=== PATIENT | male | born 1945 | race Caucasian/White ===

== ENCOUNTER 2019-04-06 09:09 | Emergency (ER) | payer OTHER ==
--- NOTE | 2019-04-06 09:25 | ER Document Report ---
HPI - HPI Patient complains to provider of: hematuria Onset: This morning Onset/Duration: Sudden, Persistent Quality of pain: No pain Severity: Moderate Pain Level: Denies Context: 73 Yr old male pt with the listed pmh, here for a large of amt of bleeding from his penis that is painless for the last several hours. he is uncircumsized. he only takes asa. no other blood thinners. no trauma or injury. no hx of asthma. hx of diabetes but states sugars are well controlled. normal bms. no uti sx. no testicular pain/swelling, penile dc/rash/lesions, or concerns for stds. denies swelling or hx of hernias. no abd surgeries unless otherwise noted. no recent abx or steroids. hasn't taken anything for sx. no hx of bleeding or clotting disorders. no acute blood loss sx. no hx of this before. no hx of gerd, gb dz, pancreatitis, gi bleed, ulcers, ibs, or crohns. pt's son is also not sure if he may be bleeding from his rectum as he has had bled enough to go through two p airs of underwear and one pair of pants. no sick contacts. no uri sx. no rash. no excessive nsaid use or etoh. no recent illness. no abd pain. pt however denies changes in color or caliber of stool. no other associated sx. - ROS Systems Reviewed and Negative: Yes All other systems reviewed and negative - to include 10, unless mentioned in the hpi <URBANO NELSON - Last Filed: 04/06/19 18:52> <WINNIE DOCKERY - Last Filed: 04/08/19 14:32> - HPI Time Seen by Provider: 04/06/19 09:22 Past Medical History - General Information source: Patient - Social History Smoking Status: Unknown if Ever Smoked Frequency of alcohol use: unknown Drug Abuse: Other - unknown Family History: Reviewed & Not Pertinent Patient has suicidal ideation: No Patient has homicidal ideation: No - Past Medical History Cardiac Medical History: Reports: Hx Hypercholesterolemia, Hx Hypertension Denies: Hx Atrial Fibrillation, Hx Congestive Heart Failure, Hx Pulmonary Embolism Endocrine Medical History: Reports: Hx Diabetes Mellitus Type 2 Renal/ Medical History: Denies: Hx Benign Prostatic Hyperplasia, Hx End Stage Renal Disease, Hx Epididymitis, Hx Hemodialysis, Hx Hydrocele, Hx Kidney Stones, Hx Peritoneal Dialysis, Hx Renal Insufficiency, Hx Testicular Torsion, Hx Varicocele Malignancy Medical History: Reports None, Denies Hx Prostate Cancer GI Medical History: Reports: Hx Gastroesophageal Reflux Disease. Denies: Hx Liver Failure Psychiatric Medical History: Reports: Hx Depression - Immunizations Hx Diphtheria, Pertussis, Tetanus Vaccination: Yes <URBANO NELSON - Last Filed: 04/06/19 18:52> Vertical Provider Document - CONSTITUTIONAL Notes: >>>> PHYSICAL_EXAM: GENERAL_APPEARANCE: well_nourished, alert, cooperative, no_acute_distress, no obvious_discomfort. Pleasant, morbidly obese elderly white male, smiling, speaking in full sentences, easily sitting up, in no sign of pain or resp distress, nontoxic VITALS: reviewed, see vital signs table. HEAD: normocephalic. atraumatic. no helms signs. no raccoon eyes. EYES: PERRL, EOMI, (-)scleral icterus. NOSE: no_nasal_discharge. MOUTH: (-)decreased moisture. THROAT: no_tonsilar_inflammation/hypertrophy/exudate. no lymphadenopathy NECK: supple, no_neck_tenderness, full rom. full strength. no meningeal signs. BACK: no_back_tenderness. CHEST_WALL: no_chest_tenderness. LUNGS: no_wheezing, (-)accessory muscle use, good air exchange bilateral. HEART: normal_rate, normal_rhythm,, ABDOMEN: normal_BS, soft, abdomen-diffuse, obese abd, exam somewhat limited due to pts body habitus, non-tender, (-)guarding, (-)rebound, no distension or peritoneal signs. neg murphys. neg mcburneys. no cva tenderness GENITALS: no_testicular_tenderness/swelling, no_urethral_discharge, no_inguinal_hernia, no_ulcers_or_lesions on the genitals unless otherwise noted, no_lacerations on the genitals, there is muna bright red blood in the underwear of the patient right below his penis and testicles. there is no pulsatile flow. On exam the penis has a chronic appearing phimosis that the patient states has b een there for his whole life along with a hardened lumpy appearing foreskin that the pt states is also chronic and unchanged. There is some bright red blood coming from in between the foreskin and the shaft of the penis. There is granulated and hyperkeratotic tissue and also some chronic excoriated-looking skin breakdown changes from what I can view around the inner edges of the small opening of phimosis. i can not directly visualize the urethral opening however pt states he can still urinate and has no pain. Foreskin is not able to be retracted however the patient states he still urinates without complication again and usually can't retract it. The lesions do not appear exactly herpetic. Some of them do appear that they could be cancerous versus condylomatous. pt is not circumcized. no sign of cellulitis or tinea. testicles otherwise wnl. exam chaperoned by ed nurse. pt consented to exam. exam without incident. RECTAL: pt consented. tolerated exam without incident. good rectal tone. hemoccult neg. no hemorrhoids. no prostate ttp or enlargement or grossly visible or palpable masses. no lesions or tears. no discharge or bleeding. ed nurse present at bedside to edge stainer machine during entire exam. EXTREMITIES: strength 5/5 in all_extremities, good pulses in all_extremities, no_edema, no_swelling\tenderness. full rom. normal gait. brisk cap refill. good hand medical records tech. SKIN: warm, dry, good_color, n _rash. no grossly visible overlying skin changes to suggest trauma unless otherwise noted. NEURO: motor_intact, sensory_intact. cranial nerves 2-12 intact, cerebellar fxn intact MENTAL_STATUS: normal_affect, speech_clear, oriented_X_3, responds_appropriately to questions. - INFECTION CONTROL TRAVEL OUTSIDE OF THE [place] IN LAST 30 DAYS: No <URBANO NELSON - Last Filed: 04/06/19 18:52> Course - Re-evaluation Re-evalutation: 04/06/19 13:10 Patient presents with some bleeding in between his foreskin on the shaft of his penis for the last several hours. He does have a chronic phimosis however is still able to urinate. He denies any dysuria or frequency. He denies any trauma or injury to the area. No history of this before. He states he has not been able to retract his foreskin his whole life. He denies any pain pain or testicular pain or swelling. No prior history of anemia or clotting disorders. No acute blood loss symptoms. His labs were notable for a hemoglobin of 11.7 and a creatinine of 1.38 however i have no old labs to compare too. He takes aspirin but no other blood thinners. His urine appears contaminated. Culture is pending. We will hold off on treatment with antibiotics since he is asymptomatic otherwise without dysuria or frequency and await culture sensitivities and urology recommendations. The patient had soaked through 2 pairs of underwear with bright red blood however then had a clot come from between the foreskin and the shaft of the penis per nursing and has had no further bleeding in the last 2 hours that he has been here and observed. He continues to deny any symptoms. He is still able to urinate. ED attending, Dr. Gama advised that I call on-call urology at [facility] since we do not have an on-call urologist here at [facility] today. I did speak with Bela, the [facility] transfer center person, who connected me to their on-call urologist, Dr. Shepherd, who i discussed the case with and he stated that the patient just needed to call their office here in [place] first thing in the morning and they would fit him in tomorrow for recheck. Patient informed of this. He was given urology's information. He was advised to return to ER today if he had any new, worsening or concerning symptoms. Vital signs stable. Otherwise well-appearing and nontoxic. Afebrile. Satting well on room air. Follow-up with urology tomorrow as discussed. Return for any worsening symptoms. On reexam, pt remained stable and the bleeding resolved spontaneously and didn't return after being observed for about 2hrs. no txa or attempts at stopping the bleeding had to be done as he stopped bleeding on his own. nontoxic. well appearing. pain controlled. tolerating po. requesting to go home. case discussed with ER Attending, Dr. Gama, who directed and agrees with plan of care and advised no further workup indicated at this time and pt is stable for dc home with close f/u with urologist tomorrow. Documentation achieved through voice recording which my lead to some occasional accidental typographical errors. Extensive efforts have been made to proof read documentation to make sure these are the least as possible. 04/06/19 19:06 - Vital Signs Vital signs: 04/06/19 13:10 Temp Pulse Resp BP Pulse Ox 17 128/74 H 94 07/21/19 10:01 04/06/19 10:01 04/06/19 10:01 Resp BP Pulse Ox 04/06/19 10:01 17 128/74 H 94 04/06/19 10:00 19 93 04/06/19 09:57 18 127/74 H 94 04/06/19 09:56 19 94 04/06/19 09:34 17 90 L 04/06/19 19:10 Temp Resp BP Pulse Ox 04/06/19 13:22 98.5 F 04/06/19 13:02 14 117/85 94 04/06/19 12:01 17 133/80 H 94 04/06/19 11:01 16 116/68 93 04/06/19 10:01 17 128/74 H 94 04/06/19 10:00 19 93 04/06/19 09:57 18 127/74 H 94 04/06/19 09:56 19 94 04/06/19 09:34 17 90 L - Laboratory Result Diagrams: 04/06/19 09:28 04/06/19 09:28 Laboratory results interpreted by me: 04/06/19 13:10 Labs- Entire Visit 04/06/19 04/06/19 04/06/19 09:28 09:28 09:28 WBC 5.4 RBC 3.65 L Hgb 11.7 L Hct 34.8 L MCV 95 MCH 31.9 MCHC 33.5 RDW 13.5 Plt Count 213 Seg Neutrophils % 53.9 Lymphocytes % 31.4 Monocytes % 7.4 Eosinophils % 6.3 H Basophils % 1.0 Absolute Neutrophils 2.9 Absolute Lymphocytes 1.7 Absolute Monocytes 0.4 Absolute Eosinophils 0.3 Absolute Basophils 0.1 PT 12.7 INR 0.95 APTT 25.2 Sodium 140.7 Potassium 5.2 H Chloride 108 H Carbon Dioxide 24 Anion Gap 9 BUN 41 H Creatinine 1.38 H Est GFR ( Amer) > 60 Est GFR (Non-Af Amer) 51 L Glucose 209 H Calcium 9.6 Total Bilirubin 0.7 Direct Bilirubin 0.5 H Neonat Total Bilirubin Not Reportable Neonat Direct Bilirubin Not Reportable Neonat Indirect Bili Not Reportable AST 27 ALT 39 Alkaline Phosphatase 46 Total Protein 7.5 Albumin 4.1 Urine Color Urine Appearance Urine pH Ur Specific [place] Urine Protein Urine Glucose (UA) Urine Ketones Urine Blood Urine Nitrite Urine Bilirubin Urine Urobilinogen Ur Leukocyte Esterase Urine WBC (Auto) Urine RBC (Auto) Urine WBC Clumps Squamous Epi Cells Auto Urine Ascorbic Acid POC Stool Occult Blood 04/06/19 04/06/19 09:50 11:15 WBC RBC Hgb Hct MCV MCH MCHC RDW Plt Count Seg Neutrophils % Lymphocytes % Monocytes % Eosinophils % Basophils % Absolute Neutrophils Absolute Lymphocytes Absolute Monocytes Absolute Eosinophils Absolute Basophils PT INR APTT Sodium Potassium Chloride Carbon Dioxide Anion Gap BUN Creatinine Est GFR ( Amer) Est GFR (Non-Af Amer) Glucose Calcium Total Bilirubin Direct Bilirubin Neonat Total Bilirubin Neonat Direct Bilirubin Neonat Indirect Bili AST ALT Alkaline Phosphatase Total Protein Albumin Urine Color JUWAN Urine Appearance CLOUDY Urine pH 5.0 Ur Specific [place] 1.019 Urine Protein 100 H Urine Glucose (UA) NEGATIVE Urine Ketones NEGATIVE Urine Blood LARGE H Urine Nitrite NEGATIVE Urine Bilirubin NEGATIVE Urine Urobilinogen 2.0 H Ur Leukocyte Esterase MODERATE H Urine WBC (Auto) >182 Urine RBC (Auto) >182 Urine WBC Clumps MOD Squamous Epi Cells Auto 2 Urine Ascorbic Acid NEGATIVE POC Stool Occult Blood NEGATIVE <URBANO NELSON - Last Filed: 04/06/19 18:52> - Re-evaluation Re-evalutation: 04/08/19 14:31 Cultures grew out 40-50,000 CFU gram-negative rods and greater than 100,000 group B beta Streptococcus. Patient is started on Keflex. Prescription has been printed and patient will pick this up at the desk. Of note patient has not been able to follow-up with Dr. Shepherd and [facility]. - Vital Signs Vital signs: Temp Pulse Resp BP Pulse Ox 98.5 F 14 117/85 94 04/06/19 13:22 04/06/19 13:02 04/06/19 13:02 04/06/19 13:02 - Laboratory Result Diagrams: 04/06/19 09:28 04/06/19 09:28 Laboratory results interpreted by me: 04/06/19 04/06/19 04/06/19 09:28 09:28 11:15 RBC 3.65 L Hgb 11.7 L Hct 34.8 L Eosinophils % 6.3 H Potassium 5.2 H Chloride 108 H BUN 41 H Creatinine 1.38 H Est GFR (Non-Af Amer) 51 L Glucose 209 H Direct Bilirubin 0.5 H Urine Protein 100 H Urine Blood LARGE H Urine Urobilinogen 2.0 H Ur Leukocyte Esterase MODERATE H <WINNIE DOCKERY - Last Filed: 04/08/19 14:32> Discharge <URBANO NELSON - Last Filed: 04/06/19 18:52> <WINNIE DOCKERY - Last Filed: 04/08/19 14:32> - Discharge Clinical Impression: Penile bleeding, Mild anemia, Lesion of penis Condition: Stable Disposition: HOME, SELF-CARE Instructions: Hematuria ([facility]) Additional Instructions: Call the urologist office in the morning to schedule an appointment for lauro rrow. Follow-up with the urologist tomorrow without fail. Return for any worsening, new, or concerning symptoms. we will call you with any abnormal culture results that require change in plan of care. Prescriptions: Cephalexin Monohydrate [Keflex 500 mg Capsule] 500 mg PO BID 5 Days capsule Referrals: LINDA CURRIE MD [ACTIVE STAFF] - Follow up as needed BERNICE SHEPHERD MD [NO LOCAL MD] - 04/07/19 (Call first thing in the morning for an apt tomorrow per Dr. Shepherd-Urologist)
[2019-04-06 10:46] LABS: INTERNATIONAL RATION (INR) 0.95; PROTHROMBIN TIME 12.7 SEC (11.4-15.4)
[2019-04-06 10:47] LABS: ABSOLUTE BASOPHILS # (AUTO) 0.1 10^3/uL (0.0-0.2); ABSOLUTE EOSINOPHILS # (AUTO) 0.3 10^3/uL (0.0-0.6); ABSOLUTE LYMPHOCYTES (AUTO) 1.7 10^3/uL (0.5-4.7); ABSOLUTE MONOCYTES (AUTO) 0.4 10^3/uL (0.1-1.4); ABSOLUTE NEUT (AUTO) 2.9 10^3/uL (1.7-8.2); EOSINOPHILS % (AUTO) 6.3 % (0-6); HEMATOCRIT 34.8 % (37.9-51.0); HEMOGLOBIN 11.7 g/dL (13.5-17.0); LYMPHOCYTES % (AUTO) 31.4 % (13-45); MEAN CORPUSCULAR HEMOGLOBIN 31.9 pg (27.0-33.4); MEAN CORPUSCULAR HGB CONC 33.5 g/dL (32.0-36.0); MEAN CORPUSCULAR VOLUME 95 fl (80-97); MONOCYTES % (AUTO) 7.4 % (3-13); PARTIAL THROMBOPLASTIN TIME 25.2 SEC (23.5-35.8); PLATELET COUNT 213 10^3/uL (150-450); RED BLOOD COUNT 3.65 10^6/uL (4.35-5.55); RED CELL DISTRIBUTION WIDTH 13.5 % (11.5-14.0); SEGMENTED NEUTROPHILS % (AUTO) 53.9 % (42-78); TOTAL CELLS COUNTED % (AUTO) 100 %; WHITE BLOOD COUNT 5.4 10^3/uL (4.0-10.5)
[2019-04-06 10:49] LABS: ALANINE AMINOTRANSFERASE 39 U/L (21-72); ALBUMIN 4.1 g/dL (3.5-5.0); ALKALINE PHOSPHATASE 46 U/L (38-126); ANION GAP 9 (5-19); ASPARTATE AMINO TRANSFERASE 27 U/L (17-59); BILIRUBIN,DIRECT 0.5 mg/dL (0.0-0.4); BILIRUBIN,TOTAL 0.7 mg/dL (0.2-1.3); BLOOD UREA NITROGEN 41 mg/dL (7-20); CALCIUM 9.6 mg/dL (8.4-10.2); CARBON DIOXIDE 24 mmol/L (22-30); CHLORIDE 108 mmol/L (98-107); GLUCOSE 209 mg/dL (75-110); POTASSIUM 5.2 mmol/L (3.6-5.0); TOTAL PROTEIN 7.5 g/dL (6.3-8.2)
[2019-04-06 11:33] LABS: APPEARANCE,URINE CLOUDY; BILIRUBIN,URINE NEGATIVE (NEGATIVE); COLOR,URINE AMBER; GLUCOSE, URINE NEGATIVE (NEGATIVE); KETONES,URINE NEGATIVE (NEGATIVE); LEUKOCYTE ESTERASE,URINE MODERATE (NEGATIVE); NITRITE,URINE NEGATIVE (NEGATIVE); PROTEIN,URINE 100 mg/dL (NEGATIVE); URINE SPECIFIC GRAVITY 1.019
[2019-04-06] MEDS ORDERED: TRANEXAMIC ACID INJ/PF 1,000 MG/10 ML SDV IV ONE (12:02)
[2019-04-06 13:21] VITALS: BP 117/85
== END 2019-04-06 13:49 | disposition home or self-care (01) ==
LOC: ER 09:09
DX: N48.89 Other specified disorders of penis (principal); D64.9 Anemia, unspecified; N47.1 Phimosis; E11.9 Type 2 diabetes mellitus without complications; I10 Essential (primary) hypertension; E66.01 Morbid (severe) obesity due to excess calories; Z79.82 Long term (current) use of aspirin
CPT/HCPCS: 36415; 80053; 81001; 85025; 85610; 85730; 87086; 87088; 87186; 99283

== ENCOUNTER 2019-04-06 18:36 | Emergency (ER) | payer MEDICARE, OTHER ==
--- NOTE | 2019-04-06 19:21 | ER Document Report ---
ED Medical Screen (RME) - General Chief Complaint: Urinary Problem Stated Complaint: BLOOD IN URINE Time Seen by Provider: 04/06/19 18:59 Primary Care Provider: ROCIO MOY [Primary Care Provider] - Follow up as needed Notes: 73-year-old male seen here earlier this morning for hematuria presents to the emergency department with continued persistent bleeding and tachycardia. Patient states that when he left bleeding had stopped and everything was okay and was instructed if he continued to bleed to come back to the emergency department. Patient said he lost a significant amount of blood earlier in the day and the bleeding is not as severe as it was earlier but it is still present. On inspection patient's foreskin is very hard and I am unable to pull it back, there is blood clots in the area it is difficult to ascertain if there is blood coming from the urethra or if it is around his glans penis. It does not appear that he is actively bleeding but his shorts are soaked through with blood any Chux pad has been soaked through as well. Patient denies any dizziness/lightheadedness/weakness, is able to ambulate once he gets on his feet without difficulty. Urology was consulted earlier in the day and they plan to see him first thing in the morning. I have greeted and performed a rapid initial assessment of this patient. A comprehensive ED assessment and evaluation of the patient, analysis of test r esults and completion of medical decision making process will be conducted by an additional ED providers. TRAVEL OUTSIDE OF THE [place] IN LAST 30 DAYS: No - Related Data Allergies/Adverse Reactions: No Known Allergies Allergy (Verified 04/06/19 18:37) Past Medical History - Past Medical History Cardiac Medical History: Reports: Hx Hypercholesterolemia, Hx Hypertension Denies: Hx Atrial Fibrillation, Hx Congestive Heart Failure, Hx Pulmonary Embolism Endocrine Medical History: Reports: Hx Diabetes Mellitus Type 2 Renal/ Medical History: Denies: Hx Benign Prostatic Hyperplasia, Hx End Stage Renal Disease, Hx Epididymitis, Hx Hemodialysis, Hx Hydrocele, Hx Kidney Stones, Hx Peritoneal Dialysis, Hx Renal Insufficiency, Hx Testicular Torsion, Hx Varicocele Malignancy Medical History: Denies Hx Prostate Cancer GI Medical History: Denies: Hx Liver Failure Psychiatric Medical History: Reports: Hx Depression - Immunizations Hx Diphtheria, Pertussis, Tetanus Vaccination: Yes Physical Exam - Vital signs Vitals: Temp Pulse Resp BP Pulse Ox 99.4 F 124 H 18 118/67 94 04/06/19 18:45 04/06/19 18:45 04/06/19 18:45 04/06/19 18:45 04/06/19 18:45 - Notes Notes: PHYSICAL EXAMINATION: Reviewed vital signs and charting by RN GENERAL: Alert, interacts well. No acute distress. HEAD: Normocephalic, atraumatic. EYES: Pupils equal and round. Extraocular movements intact. ENT: Oral mucosa moist, tongue midline. NECK: Full range of motion. Trachea midline. : Blood clotting from the tip of the urethra and around the foreskin, I am unable to retract the foreskin as there is significant stenosis of the skin and on palpation is very hard and I am unable to manipulate the skin EXTREMITIES: Moves all 4 extremities spontaneously. No edema, No cyanosis. PSYCH: Normal affect, normal mood. SKIN: Warm, dry, normal turgor. No rashes or lesions noted. Course - Vital Signs Vital signs: Temp Pulse Resp BP Pulse Ox 99.4 F 124 H 18 118/67 94 04/06/19 18:45 04/06/19 18:45 04/06/19 18:45 04/06/19 18:45 04/06/19 18:45 Doctor's Discharge - Discharge [facility]errals: [facility] [[facility] - Follow up as needed
[2019-04-06 19:58] LABS: ABSOLUTE EOSINOPHILS # (AUTO) 0.3 10^3/uL (0.0-0.6); ABSOLUTE MONOCYTES (AUTO) 0.4 10^3/uL (0.1-1.4); ABSOLUTE NEUT (AUTO) 3.3 10^3/uL (1.7-8.2); BASOPHILS % (AUTO) 0.7 % (0-2); EOSINOPHILS % (AUTO) 5.6 % (0-6); HEMATOCRIT 35.5 % (37.9-51.0); HEMOGLOBIN 11.8 g/dL (13.5-17.0); LYMPHOCYTES % (AUTO) 32.3 % (13-45); MEAN CORPUSCULAR HEMOGLOBIN 31.9 pg (27.0-33.4); MEAN CORPUSCULAR HGB CONC 33.2 g/dL (32.0-36.0); MEAN CORPUSCULAR VOLUME 96 fl (80-97); MONOCYTES % (AUTO) 7.3 % (3-13); PLATELET COUNT 228 10^3/uL (150-450); RED CELL DISTRIBUTION WIDTH 14.1 % (11.5-14.0); SEGMENTED NEUTROPHILS % (AUTO) 54.1 % (42-78); TOTAL CELLS COUNTED % (AUTO) 100 %; WHITE BLOOD COUNT 6.1 10^3/uL (4.0-10.5)
[2019-04-06 20:03] LABS: INTERNATIONAL RATION (INR) 0.93; PROTHROMBIN TIME 12.5 SEC (11.4-15.4)
[2019-04-06 20:15] LABS: ANION GAP 10 (5-19); BLOOD UREA NITROGEN 40 mg/dL (7-20); CALCIUM 9.9 mg/dL (8.4-10.2); CARBON DIOXIDE 23 mmol/L (22-30); CHLORIDE 109 mmol/L (98-107); GLUCOSE 183 mg/dL (75-110); POTASSIUM 5.3 mmol/L (3.6-5.0); SODIUM 141.7 mmol/L (137-145)
--- NOTE | 2019-04-06 20:20 | ER Document Report ---
ED GI/ - General Chief Complaint: Urinary Problem Stated Complaint: BLOOD IN URINE Time Seen by Provider: 04/06/19 18:59 Primary Care Provider: [facility] [Primary [facility]] - Follow up as needed Notes: Patient is a 73-year-old male that comes to the emergency department for chief complaint of bleeding from around the penis. He was seen here earlier for this, he was discharged with plans to follow-up with Dr. Lopes with [facility] urology tomorrow in the [place] office, he states that he was not bleeding at time of discharge but when he went home after he used the bathroom he started bleeding again. He bled through his underwear and into his pants. He states that before this morning he never had a problem with bleeding from the penis. He denies pain, dizziness, or any other symptoms. He takes a daily baby aspirin, does not take blood thinners otherwise. He states that he used to be able to retract the penis but not recently. He does have a history of type 2 diabetes on oral medication, hypertension, depression. [facility]. Patient's brother is at bedside. TRAVEL OUTSIDE OF THE [place] IN LAST 30 DAYS: No - Related Data Allergies/Adverse Reactions: No Known Allergies Allergy (Verified 04/06/19 22:38) Past Medical History - General Information source: Patient - Social History Smoking Status: Never Smoker Chew tobacco use (# tins/day): No Frequency of alcohol use: None Drug Abuse: None Lives with: Alone Family History: Reviewed & Not Pertinent Patient has suicidal ideation: No Patient has homicidal ideation: No - Past Medical History Cardiac Medical History: Reports: Hx Hypercholesterolemia, Hx Hypertension Denies: Hx Atrial Fibrillation, Hx Congestive Heart Failure, Hx Pulmonary Embolism Endocrine Medical History: Reports: Hx Diabetes Mellitus Type 2 Renal/ Medical History: Denies: Hx Benign Prostatic Hyperplasia, Hx End Stage Renal Disease, Hx Epididymitis, Hx Hemodialysis, Hx Hydrocele, Hx Kidney Stones, Hx Peritoneal Dialysis, Hx Renal Insufficiency, Hx Testicular Torsion, Hx Varicocele Malignancy Medical History: Denies Hx Prostate Cancer GI Medical History: Denies: Hx Liver Failure Psychiatric Medical History: Reports: Hx Depression - Immunizations Hx Diphtheria, Pertussis, Tetanus Vaccination: Yes Review of Systems - Review of Systems Constitutional: No symptoms reported EENT: No symptoms reported Cardiovascular: No symptoms reported Respiratory: No symptoms reported Gastrointestinal: No symptoms reported Genitourinary: See HPI Male Genitourinary: See HPI Musculoskeletal: No symptoms reported Skin: No symptoms reported Hematologic/Lymphatic: No symptoms reported Neurological/Psychological: No symptoms reported Physical Exam - Vital signs Vitals: Temp Pulse Resp BP Pulse Ox 99.4 F 124 H 18 118/67 94 04/06/19 18:45 04/06/19 18:45 04/06/19 18:45 04/06/19 18:45 04/06/19 18:45 - Notes Notes: GENERAL: Slightly disheveled but alert and well-appearing. No distress. HEAD: Normocephalic, atraumatic. EYES: Pupils equal, round, and reactive to light. Extraocular movements intact. ENT: Oral mucosa moist, tongue midline. Oropharynx unremarkable. Airway patent. LUNGS: Clear to auscultation bilaterally, no wheezes, rales, or rhonchi. No respiratory distress. HEART: Regular rate and rhythm. No murmur ABDOMEN: Soft, non-tender. Non-distended. Bowel sounds present in all 4 quadrants. GENITOURINARY: Phimosis present, unable to retract the foreskin back over the glans. With partial retraction I can see over the left mid aspect of the tip of the glands there is abnormal tissue which is somewhat hard. There is no indura tion or fluctuance however, the area appears to be either scar tissue or a mass. Does not appear to be condylomatous. There is bleeding over the inferior aspect of the penis between the glans and the inferior foreskin/phimosis. This is mild, there is no spurting blood, there is no heavy bleeding. There is no abnormal erythema, swelling, or tenderness noted over the genitals or scrotum. Unremarkable exam otherwise. EXTREMITIES: Moves all 4 extremities spontaneously. No edema, normal radial and dorsalis pedis pulses bilaterally. No cyanosis. BACK: no cervical, thoracic, lumbar midline tenderness. No saddle anesthesia, normal distal neurovascular exam. Moves all extremities in full range of motion. NEUROLOGICAL: Alert and oriented x3. Normal speech. Cranial nerves II through XII grossly intact. PSYCH: Normal affect, normal mood. SKIN: Warm, dry, normal turgor. No rashes or lesions noted. Course - Re-evaluation Re-evalutation: On my initial evaluation patient has a small amount of bleeding from the area between the inferior folds of the foreskin and the head of the penis. There is no significant bleeding or spreading. There is no tenderness, there is no sign of infection. Patient is still able to urinate. I did place a gauze and Xeroform dressing with TXA over the area and a dressing was placed over this. On reevaluation there has been no additional bleeding after approximately 30 minutes. I did review laboratory work-up, there is no significant change from prior, no drop in hemoglobin. Patient was not tachycardic on my evaluation, this was rechecked and confirmed he is not tachycardic. Unsure if the initial vital signs were correct. Patient denies palpitations, dizziness, or any other compl aints. Patient has already been given instructions to follow-up with Dr. Lopes in the office in the morning, he asks for these details to be written again on his paperwork, he states he will be there in the morning. Discussed return precautions. Patient states understanding and agreement. - Vital Signs Vital signs: Temp Pulse Resp BP Pulse Ox 98.9 F 85 21 H 118/71 95 04/06/19 22:54 04/06/19 22:54 04/06/19 22:54 04/06/19 22:54 04/06/19 22:54 - Laboratory Result Diagrams: 04/06/19 19:45 04/06/19 19:45 Laboratory results interpreted by me: 04/06/19 04/06/19 19:45 19:45 RBC 3.70 L Hgb 11.8 L Hct 35.5 L RDW 14.1 H Potassium 5.3 H Chloride 109 H BUN 40 H Creatinine 1.65 H Est GFR ( Amer) 50 L Est GFR (Non-Af Amer) 41 L Glucose 183 H Discharge - Discharge Clinical Impression: Penile bleeding, Lesion of penis Condition: Stable Disposition: HOME, SELF-CARE Additional Instructions: We have spoken to Dr. Lopes, urologist, he asks that you be seen in their clinic in the morning for additional management and treatment. You can keep the current Xeroform (yellow) dressing with gauze and tape on if needed tonight. Keep the area clean. Call the listed number below in the morning to be seen in the office. Return if you worsen including heavy bleeding, dizziness, developing redness swelling/pain, or any other concerning or worsening symptoms. [facility] [address] [facility] [id number] Referrals: [facility] [Primary Care [facility]] - Follow up as needed
[2019-04-06] MEDS ORDERED: TRANEXAMIC ACID INJ/PF 1,000 MG/10 ML SDV IV ONE ×2 (21:09→21:35)
[2019-04-06 22:54] VITALS: BP 118/71
== END 2019-04-06 22:54 | disposition home or self-care (01) ==
LOC: ER 18:36
DX: N48.89 Other specified disorders of penis (principal); N47.1 Phimosis; I10 Essential (primary) hypertension; E11.9 Type 2 diabetes mellitus without complications; Z79.84 Long term (current) use of oral hypoglycemic drugs; Z79.82 Long term (current) use of aspirin
CPT/HCPCS: 99283; 96374; 36415; 85610; J3490

== ENCOUNTER 2019-05-25 17:54 | Emergency (ER) | payer MEDICARE, OTHER ==
[2019-05-25] MEDS ORDERED: NORMAL SALINE 1000 ML 1,000 ML IV ONE (18:07)
--- NOTE | 2019-05-25 18:24 | ER Document Report ---
Entered by MADHU AMOS SCRIBE 05/25/19 1807 Acting as scribe for:PARIS RANDOLPH MD ED General - General Stated Complaint: FALL Time Seen by Provider: 05/25/19 17:59 Primary Care Provider: FARZANEH,ROCIO [Primary Care Provider] - Follow up as needed Mode of Arrival: Ambulatory Information source: Patient Notes: Patient is a 74-year-old male who presents to the emergency department today with complaints of generalized weakness with an associated fall that earlier today. Patient was seen here on 03/07/2019 for bleeding around his foreskin. Patient was instructed to follow up with urology after discharge. Patient states he followed up with a urology group from [place] and was diagnosed with testicular cancer approximately 6 weeks ago. Patient states he is due to have "some sort of operation" in 4 days for this testicular cancer. Patient is diaphoretic and febrile as well. Patient denies any urinary symptoms today. He is scheduled for surgery on of this week. TRAVEL OUTSIDE OF THE [place] IN LAST 30 DAYS: No - Related Data Allergies/Adverse Reactions: No Known Allergies Allergy (Verified 04/06/19 22:38) Past Medical History - General Information source: Patient, [facility] Records - Social History Smoking Status: Never Smoker Cigarette use (# per day): No Frequency of alcohol use: None Drug Abuse: None Lives with: Family Family History: Reviewed & Not Pertinent - Past Medical History Cardiac Medical History: Reports: Hx Hypercholesterolemia, Hx Hypertension Endocrine Medical History: Reports: Hx Diabetes Mellitus Type 2 Malignancy Medical History: 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 Psychiatric Medical History: Reports: Hx Depression Surgical Hx: Negative - Immunizations Hx Diphtheria, Pertussis, Tetanus Vaccination: Yes Review of Systems - Review of Systems Constitutional: See HPI, Diaphoresis, Fever, Malaise, Weakness EENT: No symptoms reported Cardiovascular: No symptoms reported Respiratory: No symptoms reported Gastrointestinal: No symptoms reported Genitourinary: denies: Dysuria, Retention Male Genitourinary: No symptoms reported Musculoskeletal: No symptoms reported Skin: No symptoms reported Hematologic/Lymphatic: No symptoms reported Neurological/Psychological: No symptoms reported -: Yes All other systems reviewed and negative Physical Exam - Vital signs Vitals: Temp Pulse Resp BP Pulse Ox 102.6 F H 127 H 16 131/69 H 92 05/25/19 18:42 05/25/19 18:42 05/25/19 18:42 05/25/19 18:42 05/25/19 18:42 - Notes Notes: Physical Exam: General: Alert, obese, diaphoretic, febrile. HEENT: Normocephalic. Atraumatic. PERRL. Extraocular movements intact. Oropharynx clear. Neck: Supple. Non-tender. Respiratory: No respiratory distress. Clear and equal breath sounds bilaterally. Cardiovascular: Tachycardic, regular rhythm. Abdominal: Obese. Non-tender. No distension. Normal Bowel Sounds. GENITALS: Patient has phimosis. There is a fungating mass in the head of the penis, the distal penile tissue is quite hard. There is malodorous purulent drainage from this fungating mass at the head of the glans penis. The left testicle is atrophic, otherwise normal. Right testicle is somewhat enlarged, there is suspicion of some hardness to the posterior aspect of the testicle which would be consistent with the history of cancer in the testicle. I suspect the primary problem is the cancer in the penis. Back: No gross abnormalities. Extremities: Moves all four extremities. Upper extremities: Normal inspection. Normal ROM. Lower extremities: Trace edema bilaterally. Normal ROM. Neurological: Resting tremor at baseline. Normal cognition. AAOx4. Normal s peech. Psychological: Normal affect. Normal Mood. Skin: Hot to the touch. Diaphoretic. Normal color. Course - Re-evaluation Re-evalutation: 05/25/19 20:40 Patient's case was discussed with Dr. Steiner who is the urologist that will be doing his surgery. He states the plan is to do a frozen biopsy and then proceed with partial penectomy on Sunday. He states the fever is most likely due to inflammatory response to necrotic penile tissue, and requests that he be placed on Keflex and follow-up as planned later this week. - Vital Signs Vital signs: Temp Pulse Resp BP Pulse Ox 102.3 F H 127 H 16 131/69 H 92 05/25/19 19:27 05/25/19 18:42 05/25/19 18:42 05/25/19 18:42 05/25/19 18:42 - Laboratory Result Diagrams: 05/25/19 18:12 05/25/19 18:12 Laboratory results interpreted by me: 05/25/19 05/25/19 05/25/19 18:12 18:12 18:30 WBC 11.2 H RBC 3.77 L Hgb 11.8 L Hct 35.3 L RDW 14.1 H Lymph % (Auto) 8.6 L Absolute Neuts (auto) 9.4 H Seg Neutrophils % 84.1 H BUN 25 H Creatinine 1.40 H Est GFR (MDRD) Non-Af 50 L Glucose 206 H Urine Blood SMALL H Urine Urobilinogen 4.0 H Ur Leukocyte Esterase LARGE H Discharge - Discharge Clinical Impression: Penile malignant neoplasm Fever Qualifiers: Fever type: unspecified Qualified Code(s): R50.9 - Fever, unspecified Leukocytosis Qualifiers: Leukocytosis type: unspecified Qualified Code(s): D72.829 - Elevated white blood cell count, unspecified Condition: Stable Disposition: HOME, SELF-CARE Additional Instructions: I did discuss your case with Dr. Steiner. He thinks your fever is most likely due to the inflammatory response to the necrotic cancer tissue in your penis. He wants you to take Keflex as prescribed, and drink plenty of fluids. You should take Tylenol 1000 mg every 4-6 hours for fever as needed. Keep your appointment later this week with Dr. Steiner in [place]. Call Dr. Steiner office if having any problems or questions. RETURN TO THE EMERGENCY ROOM IF ANY NEW OR WORSENING SYMPTOMS. Prescriptions: Cephalexin Monohydrate [Keflex 500 mg Capsule] 500 mg PO QID #20 capsule [facility]errals: [facility] [Primary [facility] Provider] - Follow up as needed Scribe Attestation: 05/25/19 18:28 I personally performed the services described in the documentation, reviewed and edited the documentation which was dictated to the scribe in my presence, and it accurately records my words and actions. I personally performed the services described in the documentation, reviewed and edited the documentation which was dictated to the scribe in my presence, and it accurately records my words and actions.
[2019-05-25 18:32] LABS: ABSOLUTE BASOPHILS # (AUTO) 0.1 10^3/uL (0.0-0.2); ABSOLUTE EOSINOPHILS # (AUTO) 0.1 10^3/uL (0.0-0.6); ABSOLUTE MONOCYTES (AUTO) 0.6 10^3/uL (0.1-1.4); ABSOLUTE NEUT (AUTO) 9.4 10^3/uL (1.7-8.2); BASOPHILS % (AUTO) 0.5 % (0-2); EOSINOPHILS % (AUTO) 1.3 % (0-6); HEMATOCRIT 35.3 % (37.9-51.0); HEMOGLOBIN 11.8 g/dL (13.5-17.0); LYMPHOCYTES % (AUTO) 8.6 % (13-45); MEAN CORPUSCULAR HEMOGLOBIN 31.3 pg (27.0-33.4); MEAN CORPUSCULAR HGB CONC 33.4 g/dL (32.0-36.0); MEAN CORPUSCULAR VOLUME 94 fl (80-97); MONOCYTES % (AUTO) 5.5 % (3-13); PLATELET COUNT 260 10^3/uL (150-450); RED BLOOD COUNT 3.77 10^6/uL (4.35-5.55); RED CELL DISTRIBUTION WIDTH 14.1 % (11.5-14.0); SEGMENTED NEUTROPHILS % (AUTO) 84.1 % (42-78); TOTAL CELLS COUNTED % (AUTO) 100 %; WHITE BLOOD COUNT 11.2 10^3/uL (4.0-10.5)
[2019-05-25 18:52] LABS: ALBUMIN 4.1 g/dL (3.5-5.0); ALKALINE PHOSPHATASE 60 U/L (38-126); ANION GAP 10 (5-19); ASPARTATE AMINO TRANSFERASE 27 U/L (17-59); BILIRUBIN,DIRECT 0.2 mg/dL (0.0-0.4); BILIRUBIN,TOTAL 0.4 mg/dL (0.2-1.3); BLOOD UREA NITROGEN 25 mg/dL (7-20); CARBON DIOXIDE 26 mmol/L (22-30); CHLORIDE 104 mmol/L (98-107); CREATINE KINASE 58 U/L (55-170); GLUCOSE 206 mg/dL (75-110); POTASSIUM 4.8 mmol/L (3.6-5.0); TOTAL PROTEIN 7.4 g/dL (6.3-8.2)
[2019-05-25 18:53] LABS: APPEARANCE,URINE CLOUDY; BILIRUBIN,URINE NEGATIVE (NEGATIVE); COLOR,URINE YELLOW; GLUCOSE, URINE NEGATIVE (NEGATIVE); KETONES,URINE NEGATIVE (NEGATIVE); LEUKOCYTE ESTERASE,URINE LARGE (NEGATIVE); NITRITE,URINE NEGATIVE (NEGATIVE); PROTEIN,URINE NEGATIVE (NEGATIVE)
--- NOTE | 2019-05-25 19:03 | RADIOLOGY REPORT (SQ) ---
EXAM DESCRIPTION: CHEST SINGLE VIEW COMPLETED DATE/TIME: 05/25/2019 6:49 pm REASON FOR STUDY: fever, weak COMPARISON: None. EXAM PARAMETERS: NUMBER OF VIEWS: One view. TECHNIQUE: Single frontal radiographic view of the chest acquired. RADIATION DOSE: NA LIMITATIONS: None. FINDINGS: LUNGS AND PLEURA: No opacities, masses or pneumothorax. No pleural effusion. MEDIASTINUM AND HILAR STRUCTURES: No masses. Contour normal. HEART AND VASCULAR STRUCTURES: Cardiomegaly. BONES: No acute findings. HARDWARE: None in the chest. OTHER: No other significant finding. IMPRESSION: Cardiomegaly without acute abnormality of the lungs in AP portable projection. TECHNICAL DOCUMENTATION: JOB ID: [id number] [employer]- All Rights Reserved Reading location - IP/workstation name: [email or web address]
[2019-05-25] MEDS ORDERED: ACETAMINOPHEN 325 MG TABLET PO ONE (19:29)
[2019-05-25] MEDS ORDERED: LEVOFLOXACIN 750 MG/D5W RTU 750 MG/150 ML RTUPB IV ONE (19:30)
[2019-05-25 19:52] LABS: VENOUS BLOOD BASE EXCESS -1.1 mmol/L; VENOUS BLOOD HCO3 25.1 mmol/L (20-32); VENOUS BLOOD PCO2 48.2 mmHg (35-63); VENOUS BLOOD PH 7.34 (7.30-7.42)
[2019-05-25] MEDS ORDERED: CEPHALEXIN 500 MG CAPSULE PO ONE (20:43)
[2019-05-25 21:15] VITALS: BP 127/86
== END 2019-05-25 21:47 | disposition home or self-care (01) ==
LOC: ER 17:54
DX: C60.9 Malignant neoplasm of penis, unspecified (principal); R50.9 Fever, unspecified; D72.829 Elevated white blood cell count, unspecified; R53.1 Weakness; I10 Essential (primary) hypertension; E11.9 Type 2 diabetes mellitus without complications
CPT/HCPCS: 99284; 96361; 96365; 96366; 36415; 87040; 87086; 82550; 85025; 87077; 87088; 80053; 81001; 84484; 87186; 82803; 83605; 71045; J7030; J1956

== ENCOUNTER 2019-05-31 14:19 | Emergency (ER) | payer OTHER ==
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
[2019-05-31] MEDS ORDERED: CEFTRIAXONE 1 GM/D5W RTU 1 GM/50 ML RTUPB IV ONE (15:23)
[2019-05-31] MEDS ORDERED: ACETAMINOPHEN 325 MG TABLET PO ONE (15:27)
[2019-05-31 15:45] LABS: ABSOLUTE BASOPHILS # (AUTO) 0.1 10^3/uL (0.0-0.2); ABSOLUTE LYMPHOCYTES (AUTO) 1.3 10^3/uL (0.5-4.7); ABSOLUTE MONOCYTES (AUTO) 0.5 10^3/uL (0.1-1.4); ABSOLUTE NEUT (AUTO) 9.3 10^3/uL (1.7-8.2); BASOPHILS % (AUTO) 0.6 % (0-2); EOSINOPHILS % (AUTO) 0.1 % (0-6); HEMATOCRIT 39.3 % (37.9-51.0); HEMOGLOBIN 12.9 g/dL (13.5-17.0); LYMPHOCYTES % (AUTO) 11.4 % (13-45); MEAN CORPUSCULAR HEMOGLOBIN 31.1 pg (27.0-33.4); MEAN CORPUSCULAR HGB CONC 32.8 g/dL (32.0-36.0); MEAN CORPUSCULAR VOLUME 95 fl (80-97); MONOCYTES % (AUTO) 4.3 % (3-13); PLATELET COUNT 309 10^3/uL (150-450); RED BLOOD COUNT 4.15 10^6/uL (4.35-5.55); RED CELL DISTRIBUTION WIDTH 13.7 % (11.5-14.0); SEGMENTED NEUTROPHILS % (AUTO) 83.6 % (42-78); TOTAL CELLS COUNTED % (AUTO) 100 %; WHITE BLOOD COUNT 11.1 10^3/uL (4.0-10.5)
[2019-05-31] MEDS ORDERED: NORMAL SALINE 1000 ML 1,000 ML IV ONE ×3 (15:48→18:59)
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
[2019-05-31 15:51] LABS: ALBUMIN 4.1 g/dL (3.5-5.0); ALKALINE PHOSPHATASE 63 U/L (38-126); ANION GAP 10 (5-19); ASPARTATE AMINO TRANSFERASE 213 U/L (17-59); BILIRUBIN,DIRECT 0.3 mg/dL (0.0-0.4); BILIRUBIN,TOTAL 1.1 mg/dL (0.2-1.3); BLOOD UREA NITROGEN 27 mg/dL (7-20); CALCIUM 9.6 mg/dL (8.4-10.2); CARBON DIOXIDE 28 mmol/L (22-30); CHLORIDE 102 mmol/L (98-107); GLUCOSE 199 mg/dL (75-110); POTASSIUM 4.9 mmol/L (3.6-5.0); TOTAL PROTEIN 7.6 g/dL (6.3-8.2)
[2019-05-31 16:09] LABS: CREATINE KINASE 10233 U/L (55-170)
--- NOTE | 2019-05-31 16:09 | RADIOLOGY REPORT (SQ) ---
EXAM DESCRIPTION: CT HEAD WITHOUT COMPLETED DATE/TIME: 05/31/2019 3:53 pm REASON FOR STUDY: 11; fall; left sided facial swelling COMPARISON: None. TECHNIQUE: Axial images acquired through the brain without intravenous contrast. Images reviewed wit h bone, brain and subdural windows. Images stored on PACS. All CT scanners at this facility use dose modulation, iterative reconstruction, and/or weight based d osing when appropriate to reduce radiation dose to as low as reasonably achievable (ALARA). [facility]: Dose Right [facility]: CareDose [facility]: Dose Right [facility]: Teradose 4D [facility]: Smart [employer] RADIATION DOSE: CT Rad equipment meets quality standard of care and radiation dose reduction techniq ues were employed. CTDIvol: 53.2 mGy. DLP: 1070 mGy-cm.. LIMITATIONS: None. FINDINGS: VENTRICLES: Normal size and contour. CEREBRUM: No masses. No hemorrhage. No midline shift. Age appropriate white matter. No evidence for a cute infarction. CEREBELLUM: No masses. No hemorrhage. No alteration of density. No evidence for acute infarction. EXTRA-AXIAL SPACES: No fluid collections. ORBITS AND GLOBE: No intra- or extraconal masses. Normal contour of globe without masses. CALVARIUM: No fracture. PARANASAL SINUSES: No fluid or mucosal thickening. SOFT TISSUES: Left periorbital soft tissue swelling. OTHER: No other significant finding. IMPRESSION: NO ACUTE INTRACRANIAL FINDINGS. EVIDENCE OF ACUTE STROKE: NO. TECHNICAL DOCUMENTATION: JOB ID: [id number] [place]-72 Quality ID # [id number]: Final reports with documentation of one or more dose reduction techniques (e.g., Au tomated exposure control, adjustment of the mA and/or kV according to patient size, use of iterative reconstruction technique) 2010 [employer]- All Rights Reserved Reading location - IP/workstation name: [email or web address]
--- NOTE | 2019-05-31 16:31 | RADIOLOGY REPORT (SQ) ---
EXAM DESCRIPTION: KNEE LEFT 2 VIEWS COMPLETED DATE/TIME: 05/31/2019 4:12 pm REASON FOR STUDY: 11; fall COMPARISON: None. EXAM PARAMETERS: NUMBER OF VIEWS: Two view. TECHNIQUE: AP and lateral radiographic images acquired of the left knee. LIMITATIONS: None. FINDINGS: MINERALIZATION: Normal. BONES: No acute fracture or dislocation. No worrisome bone lesions. JOINTS: No effusion. SOFT TISSUES: No significant soft tissue swelling. No radiopaque foreign body. OTHER: No other significant finding. IMPRESSION: NO FRACTURE. TECHNICAL DOCUMENTATION: JOB ID: [id number] [place]-72 2010 [employer]- All Rights Reserved Reading location - IP/workstation name: [email or web address]
--- NOTE | 2019-05-31 16:32 | RADIOLOGY REPORT (SQ) ---
EXAM DESCRIPTION: CHEST SINGLE VIEW COMPLETED DATE/TIME: 05/31/2019 4:12 pm REASON FOR STUDY: 11; fever COMPARISON: 90 19 TECHNIQUE: Single frontal radiographic view of the chest acquired. NUMBER OF VIEWS: One view. LIMITATIONS: None. FINDINGS: LUNGS AND PLEURA: No pneumothorax. Increased left basilar airspace markings and small ple ural effusion. MEDIASTINUM AND HILAR STRUCTURES: Stable. HEART AND VASCULAR STRUCTURES: Stable. BONES: No acute findings. HARDWARE: None in the chest. OTHER: No other significant finding. IMPRESSION: Increased left basilar airspace markings and small pleural effusion. TECHNICAL DOCUMENTATION: JOB ID: [id number] [place]-72 2010 [employer]- All Rights Reserved Reading location - IP/workstation name: [email or web address]
[2019-05-31] MEDS ORDERED: AZITHROMYCIN INJ 500 MG VIAL IV ONE (16:44)
[2019-05-31 17:24] LABS: INTERNATIONAL RATION (INR) 1.13; PROTHROMBIN TIME 14.6 SEC (11.4-15.4)
[2019-05-31] MEDS ORDERED: PIPERACILLIN/TAZOBACTAM 3.375 GM VIAL IV ONE (17:36)
--- NOTE | 2019-05-31 19:41 | EKG REPORT ---
SEVERITY:- ABNORMAL ECG - SINUS RHYTHM FIRST DEGREE AV BLOCK NONSPECIFIC IVCD WITH LAD : Confirmed by: Anitra Mccord MD 31-May-2019 19:40:57
--- NOTE | 2019-06-01 01:02 | ER Document Report ---
Doctor's Note Notes: 06/01/19 01:02 Patient was waiting here for transport. He states he feels somewhat chilled but otherwise has no acute complaints or concerns. He remains stable, blood pressure in the 140s, heart rate in the 70s, oxygenating well, breathing unlabored. Patient is stable for transport.
[2019-06-01 01:07] VITALS: BP 143/92
== END 2019-06-01 01:18 | disposition short-term general hospital (02) ==
LOC: ER 14:19
DX: S09.90XA Unspecified injury of head, initial encounter (principal); S80.02XA Contusion of left knee, initial encounter; W19.XXXA Unspecified fall, initial encounter; Y92.009 Unspecified place in unspecified non-institutional (private) residence as the place of occurrence of the external cause; L03.313 Cellulitis of chest wall; M62.82 Rhabdomyolysis; R22.0 Localized swelling, mass and lump, head; R50.9 Fever, unspecified; Z98.890 Other specified postprocedural states; I10 Essential (primary) hypertension; E11.9 Type 2 diabetes mellitus without complications; I44.0 Atrioventricular block, first degree
CPT/HCPCS: 93005; 99291; 96361; 96365; 96367; 36415; 87040; 87086; 82553; 82550; 85025; 85610; 80053; 84484; 83605; 71045; 73560; 70450; 93010; J7030; J0456; J0696; J2543

== ENCOUNTER 2020-02-22 18:49 | Inpatient (IN) | payer OTHER, MEDICARE ==
[2020-02-22 20:02] LABS: VENOUS BLOOD BASE EXCESS 3.2 mmol/L; VENOUS BLOOD PCO2 53.7 mmHg (35-63); VENOUS BLOOD PH 7.37 (7.30-7.42)
[2020-02-22 20:05] LABS: ABSOLUTE BASOPHILS # (AUTO) 0.1 10^3/uL (0.0-0.2); ABSOLUTE EOSINOPHILS # (AUTO) 0.2 10^3/uL (0.0-0.6); ABSOLUTE LYMPHOCYTES (AUTO) 1.6 10^3/uL (0.5-4.7); ABSOLUTE MONOCYTES (AUTO) 0.6 10^3/uL (0.1-1.4); ABSOLUTE NEUT (AUTO) 7.5 10^3/uL (1.7-8.2); BASOPHILS % (AUTO) 0.8 % (0-2); EOSINOPHILS % (AUTO) 2.4 % (0-6); HEMATOCRIT 36.4 % (37.9-51.0); HEMOGLOBIN 12.1 g/dL (13.5-17.0); LYMPHOCYTES % (AUTO) 15.7 % (13-45); MEAN CORPUSCULAR HEMOGLOBIN 31.2 pg (27.0-33.4); MEAN CORPUSCULAR HGB CONC 33.3 g/dL (32.0-36.0); MEAN CORPUSCULAR VOLUME 94 fl (80-97); MONOCYTES % (AUTO) 5.6 % (3-13); PLATELET COUNT 497 10^3/uL (150-450); RED BLOOD COUNT 3.88 10^6/uL (4.35-5.55); RED CELL DISTRIBUTION WIDTH 14.7 % (11.5-14.0); SEGMENTED NEUTROPHILS % (AUTO) 75.5 % (42-78); TOTAL CELLS COUNTED % (AUTO) 100 %; WHITE BLOOD COUNT 9.9 10^3/uL (4.0-10.5)
[2020-02-22 20:16] LABS: INTERNATIONAL RATION (INR) 1.06; PROTHROMBIN TIME 13.8 SEC (11.4-15.4)
[2020-02-22 20:17] LABS: ALBUMIN 3.3 g/dL (3.5-5.0); ALKALINE PHOSPHATASE 173 U/L (38-126); ANION GAP 10 (5-19); ASPARTATE AMINO TRANSFERASE 40 U/L (17-59); BILIRUBIN,DIRECT 0.2 mg/dL (0.0-0.4); BILIRUBIN,TOTAL 0.8 mg/dL (0.2-1.3); BLOOD UREA NITROGEN 29 mg/dL (7-20); CALCIUM 9.5 mg/dL (8.4-10.2); CARBON DIOXIDE 29 mmol/L (22-30); CHLORIDE 95 mmol/L (98-107); GLUCOSE 246 mg/dL (75-110); POTASSIUM 5.2 mmol/L (3.6-5.0); TOTAL PROTEIN 7.9 g/dL (6.3-8.2)
[2020-02-22 20:33] LABS: APPEARANCE,URINE SLIGHTLY-CLOUDY; BILIRUBIN,URINE NEGATIVE (NEGATIVE); COLOR,URINE AMBER; GLUCOSE, URINE NEGATIVE (NEGATIVE); KETONES,URINE NEGATIVE (NEGATIVE); LEUKOCYTE ESTERASE,URINE SMALL (NEGATIVE); NITRITE,URINE NEGATIVE (NEGATIVE); PROTEIN,URINE NEGATIVE (NEGATIVE); URINE SPECIFIC GRAVITY 1.019
[2020-02-22] MEDS ORDERED: NORMAL SALINE 1000 ML 1,000 ML IV ONE ×2 (20:37→20:53)
[2020-02-22] MEDS ORDERED: VANCOMYCIN HCL INJ 1000 MG VIAL IV ONE (20:51)
[2020-02-22] MEDS ORDERED: CEFEPIME IV ONE (20:52)
[2020-02-22] MEDS ORDERED: [UNRECOGNIZED DRUG - OTHER] IV ONE (20:52)
--- NOTE | 2020-02-22 21:18 | ER Document Report ---
ED Dizziness/Weakness - General Chief Complaint: General Weakness Stated Complaint: FALL/WEAKNESS Time Seen by Provider: 02/22/20 20:08 Notes: 74-year-old male with pmhx of diabetes, htn, hyperlipidemia and falls presenting today for weakness. States he has had weakness for approximately 1 year but that his weakness became worse after being discharged from a rehab facility this morning where he had to have a [place] lift and for people assist him upon discharge. He does not know the name of the rehab facility, states he begins with a B. He was at home and started to feel more progressively weak. States that he has had a few falls but does not know when these falls occurred. Patient states that he had no falls today. He also reports he has a bruise from another prior fall on his left groin. Also notes right shoulder pain. Unable to obtain full history as patient is a poor historian. Alert and oriented x3. He denies any headaches, vision changes, shortness of breath, chest pain or abdominal pain. Takes atorvastatin, lisinopril and metformin. TRAVEL OUTSIDE OF THE [place] IN LAST 30 DAYS: No - Related Data Allergies/Adverse Reactions: No Known Allergies Allergy (Verified 04/06/19 22:38) Past Medical History - General Information source: Patient - Social History Smoking Status: Unknown if Ever Smoked Family History: Reviewed & Not Pertinent Patient has homicidal ideation: No - Past Medical History Cardiac Medical History: Reports: Hx Hypercholesterolemia, Hx Hypertension Denies: Hx Atrial Fibrillation, Hx Congestive Heart Failure, Hx Pulmonary Embolism Endocrine Medical History: Reports: Hx Diabetes Mellitus Type 2 Renal/ Medical History: Denies: Hx Benign Prostatic Hyperplasia, Hx End Stage Renal Disease, Hx Epididymitis, Hx Hemodialysis, Hx Hydrocele, Hx Kidney Stones, Hx Peritoneal Dialysis, Hx Renal Insufficiency, Hx Testicular Torsion, Hx Varicocele Malignancy Medical History: Denies Hx Prostate Cancer, 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 GI Medical History: Denies: Hx Liver Failure Psychiatric Medical History: Reports: Hx Depression Past Surgical History: Reports: Hx Genitourinary Surgery - penile tumor removed - Immunizations Hx Diphtheria, Pertussis, Tetanus Vaccination: Yes Review of Systems - Review of Systems Constitutional: See HPI EENT: No symptoms reported Cardiovascular: No symptoms reported Respiratory: No symptoms reported Gastrointestinal: No symptoms reported Genitourinary: No symptoms reported Musculoskeletal: Back pain Skin: See HPI Physical Exam - Vital signs Vitals: Temp Pulse Resp BP Pulse Ox 98.5 F 94 18 97/42 L 99 02/22/20 18:55 02/22/20 18:55 02/22/20 18:55 02/22/20 18:55 02/22/20 18:55 Interpretation: Hypotensive, Tachycardic - Notes Notes: GENERAL: Alert, interacts well. No acute distress HEAD: Normocephalic, atraumatic EYES: Pupils equal, round and reactive to light. Extraocular movements intact. ENT: Oral mucosa moist, tongue midline. Oropharynx unremarkable. Airway patent. Nares patent, sinuses nontender. NECK: Full range of motion. Supple. Trachea midline. No lymphadenopathy. LUNGS: Clear to auscultation bilaterally, no wheezes, rales, or rhonchi. No respiratory distress. Nontender chest wall. HEART: Regular rate and rhythm. No murmurs, rubs or gallops. ABDOMEN: Soft, mild tenderness at left groin. Nondistended. Bowel sounds present in all 4 quadrants. GENITOURINARY: Deferred EXTREMITIES: moves upper extremities spontaneously. moves lower extremities on command. right hip and greater trochanteric region is non tender. No edema, normal radial and dorsal pedis pulses bilaterally. BACK: No cervical, thoracic, lumbar midline tenderness. No saddle anesthesia, normal distal neurovascular exam. NEUROLOGICAL: Alert and oriented x3. Normal speech. Cranial nerves II through XII grossly intact. Strength 5/ 5 in upper extremities. 4/5 lower extremities. PSYCH: Normal affect, normal mood. SKIN: large ecchymosis approximately 4 in x 4 inch with open wound on upper right back with underlying fluctulance no active drainage. Ecchymosis on right groin and lateral thigh. Dry, flaking, discolored skin from mid calf distally bilaterally. Large hematoma on bottom of right foot. Course - Re-evaluation Re-evalutation: 02/22/20 21:30 Patient was hypotensive and tachycardic upon arrival. Patient continues to remain tachycardic in the emergency department. His temperature is 99.0. WBCs are 9.9. Concerned he may be septic as has a source of infection wound on back. I attempted to contact his son on 2 occasions to discuss patients medical history further. Was unable to reach his son at the provided number but left vo icemail to return call. Patient was started on vancomycin and cefepime and started on 2 L of fluid. Chest x-ray evidence of acute cardiopulmonary disease. EKG is shows sinus tachycardia, no st segement elevation or depression. 02/22/20 23:21 Patient's vitals have improved since fluid resuscitation and IV antibiotics. Remains in the high 90s for his heart rate and blood pressures currently 113/63. Discussed patient with Dr. Aguirre. He recommends consulting with surgery. Does not desire ultrasound of cellulitis on back with induration. Order cancelled. Dr. Lai was consulted who recommends patient be NPO and will see patient in the morning. On reassessment patient denies being in any pain. Is resting well. States we can try to contact his daughter in law in order to reach his son. Discussed admission with patient who is agreeance with plan. - Vital Signs Vital signs: Temp Pulse Resp BP Pulse Ox 98.6 F 95 20 118/63 94 02/23/20 03:47 02/23/20 06:55 02/23/20 03:47 02/23/20 03:47 02/23/20 03:47 - Laboratory Result Diagrams: 02/23/20 04:17 02/23/20 04:17 Laboratory results interpreted by me: 02/22/20 02/22/20 02/22/20 19:48 19:48 19:48 RBC 3.88 L Hgb 12.1 L Hct 36.4 L RDW 14.7 H Plt Count 497 H Sodium 133.5 L Potassium 5.2 H Chloride 95 L BUN 29 H Creatinine 1.39 H Est GFR (MDRD) Non-Af 50 L Glucose 246 H Lactic Acid 2.5 H Magnesium ALT 51 H Alkaline Phosphatase 173 H Creatine Kinase Albumin 3.3 L Urine Urobilinogen Ur Leukocyte Esterase Urine Ascorbic Acid 02/22/20 02/22/20 02/22/20 19:48 19:48 20:00 RBC Hgb Hct RDW Plt Count Sodium Potassium Chloride BUN Creatinine Est GFR (MDRD) Non-Af Glucose Lactic Acid Magnesium 1.5 L ALT Alkaline Phosphatase Creatine Kinase 26 L Albumin Urine Urobilinogen 4.0 H Ur Leukocyte Esterase SMALL H Urine Ascorbic Acid 40 H - EKG Interpretation by Me Rate: Tachycardia Additional EKG results interpreted by me: 02/23/20 07:14 Sinus tachycardia at 120, NC interval 124, Qtc 554. No st segment elevation or depression Discharge - Discharge Clinical Impression: Abscess Disposition: ADMITTED INPATIENT Admitting Provider: Timothy (Hospitalist) Unit Admitted: Telemetry
--- NOTE | 2020-02-22 21:31 | RADIOLOGY REPORT (SQ) ---
XR CHEST 1 VIEW HISTORY: Weakness. COMPARISON: 05/31/2019 FINDINGS: The heart size is within normal limits. There is no pulmonary vascular congestion. No consolidation, pleural effusion, or pneumothorax is seen. The bony structures are preserved. IMPRESSION: No evidence of acute cardiopulmonary disease.
[2020-02-22 21:47] LABS: FREE T3 3.15 pg/mL (2.77-5.27)
[2020-02-22 22:01] LABS: THYROID STIMULATING HORMONE 3.3 uIU/mL (0.47-4.68)
--- NOTE | 2020-02-22 23:22 | EKG REPORT ---
SEVERITY:- ABNORMAL ECG - SINUS TACHYCARDIA RBBB AND LAFB PROBABLE LEFT VENTRICULAR HYPERTROPHY : Confirmed by: Kassi Zamora 22-Feb-2020 23:21:31
[2020-02-22] MEDS ORDERED: DEXTROSE 50%-WATER 25 GM/50 ML DISP.SYRIN IV PRN ×2 (23:42)
[2020-02-22] MEDS ORDERED: MAGNESIUM HYDROXIDE SUSP 30 ML UDCUP PO PRN (23:42)
[2020-02-22] MEDS ORDERED: DEXTROSE 40% GEL 15 GM TUBE PO PRN ×2 (23:42)
[2020-02-22] MEDS ORDERED: IPRATROPIUM/ALBUTEROL 0.5-2.5 MG/3 ML AMPUL NEB PRN (23:42)
[2020-02-22] MEDS ORDERED: MAG HYDROX/AL HYDROX/SIMETH SUSP 30 ML UDCUP PO PRN (23:42)
[2020-02-22] MEDS ORDERED: GLUCAGON,HUMAN RECOMB 1 MG INJ IM PRN (23:42)
[2020-02-22] MEDS ORDERED: ACETAMINOPHEN 325 MG TABLET PO PRN (23:42)
[2020-02-22] MEDS ORDERED: VANCOMYCIN HCL 0 MG in DEXTROSE 5%-WATER 250 ML IV NR (23:45)
[2020-02-23] MEDS ORDERED: PIPERACILLIN/TAZOBACTAM 3.375 GM VIAL IV PRN (00:32)
[2020-02-23] MEDS: NORMAL SALINE 1000 ML 1,000 ML IV PRN ×3 (00:46→17:28)
[2020-02-23] MEDS: INSULIN LISPRO 100 UNIT/ML 3 ML VIAL SUBCUT SCH ×5 (01:24→23:23)
--- NOTE | 2020-02-23 04:09 | PDOC CONSULTATION ---
Consultation Consult Date: 02/23/20 Attending physician:: AVERY CRUZ Provider Consulted: LUIS ALFREDO MAXWELL Consult reason:: Wounds right back and right hip History of Present Illness Admission Date/PCP: 02/22/20 23:52 ZAKI DAVIS MD History of Present Illness: FABRICE GRANADOS is a 74 year old male Presents the emergency department via ground rescue after being [facility] this [facility]. History of present illness is incomplete because patient is unable to provide a history, and there is no one accompanying him. The record reflects patient fell and sustained soft tissue injuries to his right back and right hip. In the emergency department patient was found to have advanced decubiti of the right posterior shoulder, and right hip. Surgery was consulted. Patient admitted to the hospital service and kept n.p.o. Past Medical History Past Medical History: Patient is demented; unable to move significantly on his own. Cardiac Medical History: Reports: Hyperlipidema, Hypertension Denies: Atrial Fibrillation, Congestive Heart Failure, Pulmonary Embolism Endocrine Medical History: Reports: Diabetes Mellitus Type 2 Renal/ Medical History: Denies: End Stage Renal Disease Psychiatric Medical History: Reports: Depression Past Surgical History Past Surgical History: Unknown as no HPI available Past Surgical History: Reports: None Social History Smoking Status: Unknown if Ever Smoked Frequency of Alcohol Use: None Hx Recreational Drug Use: No Drugs: None Hx Prescription Drug Abuse: No Family History Family History: None, Reviewed & Not Pertinent Parental Family History Reviewed: No Children Family History Reviewed: No Sibling(s) Family History Reviewed.: No Medication/Allergy Home Medications: Cephalexin Monohydrate [Keflex 500 mg Capsule] 500 mg PO BID #14 capsule 04/16/14 Hydrocodone/Acetaminophen [Vicodin 5-300 mg Tablet] 1 - 2 tab PO ASDIR PRN #15 tab 04/16/14 Methocarbamol [Robaxin 750 mg Tablet] 1 - 2 mg PO Q8HP PRN #40 tablet 04/25/16 Cephalexin Monohydrate [Keflex 500 mg Capsule] 500 mg PO BID 5 Days capsule 04/08/19 Cephalexin Monohydrate [Keflex 500 mg Capsule] 500 mg PO QID #20 capsule 05/25/19 Allergies/Adverse Reactions: No Known Allergies Allergy (Verified 04/06/19 22:38) Review of Systems ROS unobtainable: Due to mental status Physical Exam Vital Signs: Temp Pulse Resp BP Pulse Ox 98.2 F 99 20 111/67 93 02/23/20 01:14 02/23/20 01:25 02/23/20 01:14 02/23/20 01:14 02/23/20 01:14 Intake & Output 02/21/20 02/22/20 02/23/20 06:59 06:59 06:59 Intake Total 2007 Balance 2007 Weight 122.47 kg General appearance: PRESENT: other - Playing incurring, glasses on, follows some simple commands Eye exam: PRESENT: other - No icterus Mouth exam: PRESENT: dry mucosa Respiratory exam: PRESENT: other - Rhonchi bilateral Cardiovascular exam: PRESENT: RRR GI/Abdominal exam: PRESENT: soft Rectal exam: PRESENT: deferred Extremities exam: PRESENT: other - Very stiff Musculoskeletal exam: PRESENT: other - Right back examined. Fluctuant, erythematous swollen area over the right posterior scapular area; no active drainage. Neurological exam: PRESENT: other - Patient not communicative verbally Skin exam: PRESENT: other - Right posterior back wound described above; right hip wound consistent with stage III-IV decubitus, large Results Laboratory Results: 02/22/20 19:48 02/22/20 19:48 02/22/20 02/22/20 02/22/20 19:48 19:48 19:48 WBC 9.9 RBC 3.88 L Hgb 12.1 L Hct 36.4 L MCV 94 MCH 31.2 MCHC 33.3 RDW 14.7 H Plt Count 497 H Seg Neutrophils % 75.5 VBG pH VBG pCO2 VBG HCO3 VBG Base Excess Sodium 133.5 L Potassium 5.2 H Chloride 95 L Carbon Dioxide 29 Anion Gap 10 BUN 29 H Creatinine 1.39 H Est GFR ( Amer) > 60 Glucose 246 H Lactic Acid 2.5 H Calcium 9.5 Magnesium Total Bilirubin 0.8 AST 40 Alkaline Phosphatase 173 H Total Protein 7.9 Albumin 3.3 L TSH Free T3 pg/mL Urine Color Urine Appearance Urine pH Ur Specific [place] Urine Protein Urine Glucose (UA) Urine Ketones Urine Blood Urine Nitrite Ur Leukocyte Esterase Urine WBC (Auto) Urine RBC (Auto) 02/22/20 02/22/20 02/22/20 19:48 19:48 19:48 WBC RBC Hgb Hct MCV MCH MCHC RDW Plt Count Seg Neutrophils % VBG pH 7.37 VBG pCO2 53.7 VBG HCO3 30.0 VBG Base Excess 3.2 Sodium Potassium Chloride Carbon Dioxide Anion Gap BUN Creatinine Est GFR ( Amer) Glucose Lactic Acid Calcium Magnesium 1.5 L Total Bilirubin AST Alkaline Phosphatase Total Protein Albumin TSH 3.30 Free T3 pg/mL 3.15 Urine Color Urine Appearance Urine pH Ur Specific [place] Urine Protein Urine Glucose (UA) Urine Ketones Urine Blood Urine Nitrite Ur Leukocyte Esterase Urine WBC (Auto) Urine RBC (Auto) 02/22/20 02/22/20 02/23/20 20:00 22:49 01:45 WBC RBC Hgb Hct MCV MCH MCHC RDW Plt Count Seg Neutrophils % VBG pH VBG pCO2 VBG HCO3 VBG Base Excess Sodium Potassium Chloride Carbon Dioxide Anion Gap BUN Creatinine Est GFR ( Amer) Glucose Lactic Acid 1.1 Calcium Magnesium 1.4 L Total Bilirubin AST Alkaline Phosphatase Total Protein Albumin TSH Free T3 pg/mL Urine Color JUWAN Urine Appearance SLIGHTLY-CLOUDY Urine pH 5.0 Ur Specific [place] 1.019 Urine Protein NEGATIVE Urine Glucose (UA) NEGATIVE Urine Ketones NEGATIVE Urine Blood NEGATIVE Urine Nitrite NEGATIVE Ur Leukocyte Esterase SMALL H Urine WBC (Auto) 4 Urine RBC (Auto) 1 02/23/20 01:45 WBC RBC Hgb Hct MCV MCH MCHC RDW Plt Count Seg Neutrophils % VBG pH VBG pCO2 VBG HCO3 VBG Base Excess Sodium Potassium Chloride Carbon Dioxide Anion Gap BUN Creatinine Est GFR ( Amer) Glucose Lactic Acid 1.0 Calcium Magnesium Total Bilirubin AST Alkaline Phosphatase Total Protein Albumin TSH Free T3 pg/mL Urine Color Urine Appearance Urine pH Ur Specific [place] Urine Protein Urine Glucose (UA) Urine Ketones Urine Blood Urine Nitrite Ur Leukocyte Esterase Urine WBC (Auto) Urine RBC (Auto) 02/22/20 02/22/20 02/23/20 19:48 19:48 01:45 Creatine Kinase 26 L 21 L Troponin I < 0.012 Impressions: Chest X-Ray 02/22/20 20:37 IMPRESSION: No evidence of acute cardiopulmonary disease. Assessment & Plan - Diagnosis (1) Decubitus ulcer, stage III Is this a current diagnosis for this admission?: Yes Plan: Pression: Acute right back abscess likely secondary to decubitus; large right hip decubitus, and the stage III in demented, bedridden 74-year-old male Recommendations: 1. Set patient up for debridement in the operating room later today, under LMAC anesthesia. 2. Keep patient n.p.o. and IV fluids and empiric antibiotic therapy 3. Discussed with Dr. Avery Cruz, hospitalist (2) Dementia Is this a current diagnosis for this admission?: Yes (3) Mobility impaired Is this a current diagnosis for this admission?: Yes (4) Diabetes mellitus Is this a current diagnosis for this admission?: Yes - Time Time Spent: 30 to 50 Minutes Smoking Cessation Education: over 10 minutes Medications reviewed and adjusted accordingly: Yes Anticipated discharge: Home
[2020-02-23] MEDS: PIPERACILLIN SODIUM/TAZOBACTAM 3.375 GM in NORMAL SALINE 100 ML IV SCH ×4 (04:13→21:34)
[2020-02-23] MEDS ORDERED: HYDRALAZINE HCL INJ/PF 20 MG/1 ML SDV IV PRN (04:43)
[2020-02-23] MEDS ORDERED: LACTULOSE SYRUP 20 GM/30 ML UDCUP PO ONE (04:44)
--- NOTE | 2020-02-23 05:02 | PDOC H&P ---
History of Present Illness Admission Date/PCP: 02/22/20 23:52 ZAKI DAVIS MD Patient complains of: Generalized weakness History of Present Illness: FABRICE GRANADOS is a 74 year old male with a past medical history of diabetes, hypertension, dyslipidemia, obesity, generalized debility and recurrent falls. He presents with weakness and pain to the upper back on the right. In the emergency department he is found to have hypotension, tachycardia, and new right bundle branch block, hyperkalemia, hyperglycemia, hypomagnesemia, a large 10 x 10 cm fluctuant abscess to the upper right scapula, 16 x 8 cm decubitus with eschar over the right greater trochanter, 2 x 3 cm right lateral midfoot eschar and 4 x 6 cm eschar on the left heel. Patient is otherwise awake and alert, socially appropriate admits to living alone unclear of his medication regiment denying alcohol tobacco recreational drugs. He started on empiric antibiotics and referred to the hospitalist for admission. Past Medical History Cardiac Medical History: Reports: Hyperlipidema, Hypertension Denies: Atrial Fibrillation, Congestive Heart Failure, Pulmonary Embolism Endocrine Medical History: Reports: Diabetes Mellitus Type 2 Renal/ Medical History: Denies: End Stage Renal Disease Psychiatric Medical History: Reports: Depression Past Surgical History Past Surgical History: Reports: None Social History Smoking Status: Unknown if Ever Smoked Frequency of Alcohol Use: None Hx Recreational Drug Use: No Drugs: None Hx Prescription Drug Abuse: No Family History Family History: DM, Hypertension Parental Family History Reviewed: No Children Family History Reviewed: No Sibling(s) Family History Reviewed.: No Medication/Allergy Home Medications: Cephalexin Monohydrate [Keflex 500 mg Capsule] 500 mg PO BID #14 capsule 04/16/14 Hydrocodone/Acetaminophen [Vicodin 5-300 mg Tablet] 1 - 2 tab PO ASDIR PRN #15 tab 04/16/14 Methocarbamol [Robaxin 750 mg Tablet] 1 - 2 mg PO Q8HP PRN #40 tablet 04/25/16 Cephalexin Monohydrate [Keflex 500 mg Capsule] 500 mg PO BID 5 Days capsule 04/08/19 Cephalexin Monohydrate [Keflex 500 mg Capsule] 500 mg PO QID #20 capsule 05/25/19 Allergies/Adverse Reactions: No Known Allergies Allergy (Verified 04/06/19 22:38) Review of Systems Constitutional: PRESENT: as per HPI, fatigue, fever(s), weakness, weight loss Eyes: ABSENT: visual disturbances Ears: ABSENT: hearing changes Cardiovascular: ABSENT: chest pain, dyspnea on exertion, edema, orthropnea, palpitations Respiratory: ABSENT: cough, hemoptysis Gastrointestinal: ABSENT: abdominal pain, constipation, diarrhea, hematemesis, hematochezia, nausea, vomiting Genitourinary: ABSENT: dysuria, hematuria Musculoskeletal: PRESENT: as per HPI, back pain, muscle weakness Integumentary: PRESENT: as per HPI, erythema, lesions, wounds, other - 20 x 30 cm right upper lateral thigh ecchymosis. ABSENT: rash Neurological: ABSENT: abnormal gait, abnormal speech, confusion, dizziness, focal weakness, syncope Psychiatric: ABSENT: anxiety, depression, homidical ideation, suicidal ideation Endocrine: ABSENT: cold intolerance, heat intolerance, polydipsia, polyuria Hematologic/Lymphatic: ABSENT: easy bleeding, easy bruising Physical Exam Vital Signs: Temp Pulse Resp BP Pulse Ox 98.6 F 91 20 118/63 94 02/23/20 03:47 02/23/20 03:47 02/23/20 03:47 02/23/20 03:47 02/23/20 03:47 Intake & Output 02/21/20 02/22/20 02/23/20 11:59 11:59 11:59 Intake Total 2866 Balance 2866 Weight 122.47 kg General appearance: PRESENT: cooperative, disheveled, mild distress, obese, well-developed Head exam: PRESENT: atraumatic, normocephalic Eye exam: PRESENT: conjunctiva pink, EOMI, PERRLA. ABSENT: scleral icterus Ear exam: PRESENT: normal external ear exam Mouth exam: PRESENT: moist, tongue midline Neck exam: ABSENT: carotid bruit, JVD, lymphadenopathy, thyromegaly Respiratory exam: PRESENT: clear to auscultation elizabeth, symmetrical. ABSENT: rales, wheezes Cardiovascular exam: PRESENT: RRR. ABSENT: diastolic murmur, rubs, systolic murmur Pulses: PRESENT: normal carotid pulses, normal radial pulses, +1 pedal pulses bilateral. ABSENT: normal femoral pulses, normal dorsalis pedis pul Vascular exam: PRESENT: other - Distal extremity cyanosis, chronic, peripheral vascular changes GI/Abdominal exam: PRESENT: normal bowel sounds, soft. ABSENT: distended, guarding, mass, organolmegaly, rebound, tenderness Torso Front/Back Image: 1 - 10 x 10 cm fluctuant abscess to the upper right scapula Rectal exam: PRESENT: deferred Extremities exam: PRESENT: full ROM, tenderness, other - 20 x 30 cm right upper lateral thigh ecchymosis. ABSENT: joint swelling, pedal edema, +1 edema, +2 edema Musculoskeletal exam: PRESENT: other - 20 x 30 cm right upper lateral thigh ecchymosis Neurological exam: PRESENT: alert, awake, oriented to person, oriented to place, oriented to time, oriented to situation, CN II-XII grossly intact. ABSENT: motor sensory deficit Psychiatric exam: PRESENT: appropriate affect, normal mood. ABSENT: homicidal ideation, suicidal ideation Skin exam: PRESENT: dry, warm, other - 10 x 10 cm fluctuant abscess to the upper right scapula, 16 x 8 cm decubitus with eschar over the right greater trochanter, 2 x 3 cm right lateral midfoot eschar and 4 x 6 cm eschar on the left heel. ABSENT: cyanosis, intact, rash Results Laboratory Results: 02/22/20 19:48 02/22/20 19:48 02/22/20 02/22/20 02/22/20 19:48 19:48 19:48 WBC 9.9 RBC 3.88 L Hgb 12.1 L Hct 36.4 L MCV 94 MCH 31.2 MCHC 33.3 RDW 14.7 H Plt Count 497 H Seg Neutrophils % 75.5 VBG pH VBG pCO2 VBG HCO3 VBG Base Excess Sodium 133.5 L Potassium 5.2 H Chloride 95 L Carbon Dioxide 29 Anion Gap 10 BUN 29 H Creatinine 1.39 H Est GFR ( Amer) > 60 Glucose 246 H Lactic Acid 2.5 H Calcium 9.5 Magnesium Total Bilirubin 0.8 AST 40 Alkaline Phosphatase 173 H Total Protein 7.9 Albumin 3.3 L TSH Free T3 pg/mL Urine Color Urine Appearance Urine pH Ur Specific [place] Urine Protein Urine Glucose (UA) Urine Ketones Urine Blood Urine Nitrite Ur Leukocyte Esterase Urine WBC (Auto) Urine RBC (Auto) 02/22/20 02/22/20 02/22/20 19:48 19:48 19:48 WBC RBC Hgb Hct MCV MCH MCHC RDW Plt Count Seg Neutrophils % VBG pH 7.37 VBG pCO2 53.7 VBG HCO3 30.0 VBG Base Excess 3.2 Sodium Potassium Chloride Carbon Dioxide Anion Gap BUN Creatinine Est GFR ( Amer) Glucose Lactic Acid Calcium Magnesium 1.5 L Total Bilirubin AST Alkaline Phosphatase Total Protein Albumin TSH 3.30 Free T3 pg/mL 3.15 Urine Color Urine Appearance Urine pH Ur Specific [place] Urine Protein Urine Glucose (UA) Urine Ketones Urine Blood Urine Nitrite Ur Leukocyte Esterase Urine WBC (Auto) Urine RBC (Auto) 02/22/20 02/22/20 02/23/20 20:00 22:49 01:45 WBC RBC Hgb Hct MCV MCH MCHC RDW Plt Count Seg Neutrophils % VBG pH VBG pCO2 VBG HCO3 VBG Base Excess Sodium Potassium Chloride Carbon Dioxide Anion Gap BUN Creatinine Est GFR ( Amer) Glucose Lactic Acid 1.1 Calcium Magnesium 1.4 L Total Bilirubin AST Alkaline Phosphatase Total Protein Albumin TSH Free T3 pg/mL Urine Color JUWAN Urine Appearance SLIGHTLY-CLOUDY Urine pH 5.0 Ur Specific [place] 1.019 Urine Protein NEGATIVE Urine Glucose (UA) NEGATIVE Urine Ketones NEGATIVE Urine Blood NEGATIVE Urine Nitrite NEGATIVE Ur Leukocyte Esterase SMALL H Urine WBC (Auto) 4 Urine RBC (Auto) 1 02/23/20 01:45 WBC RBC Hgb Hct MCV MCH MCHC RDW Plt Count Seg Neutrophils % VBG pH VBG pCO2 VBG HCO3 VBG Base Excess Sodium Potassium Chloride Carbon Dioxide Anion Gap BUN Creatinine Est GFR ( Amer) Glucose Lactic Acid 1.0 Calcium Magnesium Total Bilirubin AST Alkaline Phosphatase Total Protein Albumin TSH Free T3 pg/mL Urine Color Urine Appearance Urine pH Ur Specific [place] Urine Protein Urine Glucose (UA) Urine Ketones Urine Blood Urine Nitrite Ur Leukocyte Esterase Urine WBC (Auto) Urine RBC (Auto) 02/22/20 02/22/20 02/23/20 19:48 19:48 01:45 Creatine Kinase 26 L 21 L Troponin I < 0.012 Impressions: Chest X-Ray 02/22/20 20:37 IMPRESSION: No evidence of acute cardiopulmonary disease. Assessment and Plan - Diagnosis (1) Diabetes Qualifiers: Diabetes mellitus type: type 2 Is this a current diagnosis for this admission?: Yes Plan: Unknown home regiment, uncontrolled hyperglycemia, Humalog sliding scale ordered, consider long-acting insulin following surgery. 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 (5) Decubitus ulcer, stage III Is this a current diagnosis for this admission?: Yes Plan: Large right greater trochanteric decubitus ulcer, defer to surgery. (6) Mobility impaired Is this a current diagnosis for this admission?: Yes Plan: Physical therapy evaluation, unable to return to independent living, follow-up discharge planning consult for placement. (7) Hyperkalemia Is this a current diagnosis for this admission?: Yes Plan: Without peak T waves, lactulose and insulin initiated, follow-up chemistry. - Time Time Spent with patient: 25-34 minutes - Inpatient Certification Medical Necessity: Need Close Monitoring Due to Risk of Patient Decompensation
[2020-02-23] MEDS: HEPARIN SOD (PORCINE) 5,000 UNIT/ML 1 ML VIAL SUBCUT SCH ×3 (05:09→21:34)
[2020-02-23] MEDS: MAGNESIUM SULFATE/D5W 1 GM/100 ML RTUPB IV SCH ×2 (05:14→06:29)
[2020-02-23 05:34] LABS: ABSOLUTE BASOPHILS # (AUTO) 0.1 10^3/uL (0.0-0.2); ABSOLUTE EOSINOPHILS # (AUTO) 0.2 10^3/uL (0.0-0.6); ABSOLUTE LYMPHOCYTES (AUTO) 1.9 10^3/uL (0.5-4.7); ABSOLUTE MONOCYTES (AUTO) 0.5 10^3/uL (0.1-1.4); ABSOLUTE NEUT (AUTO) 6.2 10^3/uL (1.7-8.2); BASOPHILS % (AUTO) 0.9 % (0-2); EOSINOPHILS % (AUTO) 2.5 % (0-6); LYMPHOCYTES % (AUTO) 21.3 % (13-45); MEAN CORPUSCULAR HEMOGLOBIN 31.9 pg (27.0-33.4); MEAN CORPUSCULAR HGB CONC 34.3 g/dL (32.0-36.0); MEAN CORPUSCULAR VOLUME 93 fl (80-97); MONOCYTES % (AUTO) 5.9 % (3-13); PLATELET COUNT 367 10^3/uL (150-450); RED BLOOD COUNT 3.01 10^6/uL (4.35-5.55); RED CELL DISTRIBUTION WIDTH 14.8 % (11.5-14.0); SEGMENTED NEUTROPHILS % (AUTO) 69.4 % (42-78); TOTAL CELLS COUNTED % (AUTO) 100 %; WHITE BLOOD COUNT 8.9 10^3/uL (4.0-10.5)
[2020-02-23 05:36] LABS: HEMOGLOBIN 9.6 g/dL (13.5-17.0)
[2020-02-23 05:52] LABS: ANION GAP 5 (5-19); BLOOD UREA NITROGEN 27 mg/dL (7-20); CALCIUM 8.3 mg/dL (8.4-10.2); CARBON DIOXIDE 28 mmol/L (22-30); CHLORIDE 101 mmol/L (98-107); GLUCOSE 164 mg/dL (75-110); POTASSIUM 4.4 mmol/L (3.6-5.0)
[2020-02-23] MEDS: VANCOMYCIN HCL 1,500 MG in DEXTROSE 5%-WATER 250 ML IV SCH ×2 (09:58→23:16)
[2020-02-23] MEDS: DOCUSATE SODIUM 100 MG CAPSULE PO SCH ×2 (10:01→17:24)
--- NOTE | 2020-02-23 10:44 | PDOC PROGRESS REPORT ---
Subjective Progress Note for:: 02/23/20 Subjective:: FABRICE GRANADOS is a 74 year old male with a past medical history of diabetes, hypertension, dyslipidemia, obesity, generalized debility and recurrent falls who was admitted for profound debility with stage III, 4, and unstageable pressure ulcers and an abscess to his right back requiring surgical debridement. Patient was seen on morning rounds. He was found resting in bed, comfortably on room air. He is alert and oriented to self, place, situation. He has a flat affect and appears irritated by staff members. He does tell me that he was recently admitted to [facility] for falls and [place] He reports that he was at rehab for approximately 1 week prior to being discharged yesterday. He denies fever, chest pain, dyspnea, cough, abdominal pain, nausea vomiting and diarrhea. He has no questions or concerns at this time. No concerns per nursing. Reason For Visit: TROCHANTER Physical Exam Vital Signs: Temp Pulse Resp BP Pulse Ox 98.7 F 91 17 112/63 94 02/23/20 09:34 02/23/20 09:34 02/23/20 09:34 02/23/20 09:34 02/23/20 09:34 Intake & Output 02/22/20 02/23/20 02/24/20 06:59 06:59 06:59 Intake Total 3066 Balance 3066 Weight 115.9 kg General appearance: PRESENT: no acute distress, disheveled, well-developed, well-nourished - overweight, other - chronically ill appearing Head exam: PRESENT: atraumatic, normocephalic Eye exam: PRESENT: conjunctiva pink, EOMI, PERRLA. ABSENT: scleral icterus Mouth exam: PRESENT: moist, tongue midline Neck exam: ABSENT: carotid bruit, JVD, lymphadenopathy, thyromegaly Respiratory exam: PRESENT: clear to auscultation elizabeth, symmetrical, unlabored. ABSENT: rales, rhonchi, wheezes Cardiovascular exam: PRESENT: RRR, +S1, +S2. ABSENT: diastolic murmur, rubs, systolic murmur Pulses: PRESENT: normal dorsalis pedis pul Vascular exam: PRESENT: normal capillary refill GI/Abdominal exam: PRESENT: normal bowel sounds, soft. ABSENT: distended, guarding, mass, organolmegaly, rebound, tenderness Rectal exam: PRESENT: deferred Extremities exam: PRESENT: full ROM. ABSENT: calf tenderness, clubbing, pedal edema Neurological exam: PRESENT: alert, awake, oriented to person, oriented to place, oriented to time, CN II-XII grossly intact. ABSENT: motor sensory deficit Psychiatric exam: PRESENT: agitated, appropriate affect, normal mood. ABSENT: homicidal ideation, suicidal ideation Skin exam: PRESENT: dry, warm, other - Right posterior back wound; right hip wound consistent with stage III-IV decubitus; large unstagable left heel ulcer.. ABSENT: cyanosis, rash Results Laboratory Results: 02/23/20 04:17 02/23/20 04:17 02/22/20 02/22/20 02/22/20 19:48 19:48 19:48 WBC 9.9 RBC 3.88 L Hgb 12.1 L Hct 36.4 L MCV 94 MCH 31.2 MCHC 33.3 RDW 14.7 H Plt Count 497 H Seg Neutrophils % 75.5 VBG pH VBG pCO2 VBG HCO3 VBG Base Excess Sodium 133.5 L Potassium 5.2 H Chloride 95 L Carbon Dioxide 29 Anion Gap 10 BUN 29 H Creatinine 1.39 H Est GFR ( Amer) > 60 Glucose 246 H Lactic Acid 2.5 H Calcium 9.5 Magnesium Total Bilirubin 0.8 AST 40 Alkaline Phosphatase 173 H Total Protein 7.9 Albumin 3.3 L TSH Free T3 pg/mL Urine Color Urine Appearance Urine pH Ur Specific Gardiner Urine Protein Urine Glucose (UA) Urine Ketones Urine Blood Urine Nitrite Ur Leukocyte Esterase Urine WBC (Auto) Urine RBC (Auto) 02/22/20 02/22/20 02/22/20 19:48 19:48 19:48 WBC RBC Hgb Hct MCV MCH MCHC RDW Plt Count Seg Neutrophils % VBG pH 7.37 VBG pCO2 53.7 VBG HCO3 30.0 VBG Base Excess 3.2 Sodium Potassium Chloride Carbon Dioxide Anion Gap BUN Creatinine Est GFR ( Amer) Glucose Lactic Acid Calcium Magnesium 1.5 L Total Bilirubin AST Alkaline Phosphatase Total Protein Albumin TSH 3.30 Free T3 pg/mL 3.15 Urine Color Urine Appearance Urine pH Ur Specific Gardiner Urine Protein Urine Glucose (UA) Urine Ketones Urine Blood Urine Nitrite Ur Leukocyte Esterase Urine WBC (Auto) Urine RBC (Auto) 02/22/20 02/22/20 02/23/20 20:00 22:49 01:45 WBC RBC Hgb Hct MCV MCH MCHC RDW Plt Count Seg Neutrophils % VBG pH VBG pCO2 VBG HCO3 VBG Base Excess Sodium Potassium Chloride Carbon Dioxide Anion Gap BUN Creatinine Est GFR ( Amer) Glucose Lactic Acid 1.1 Calcium Magnesium 1.4 L Total Bilirubin AST Alkaline Phosphatase Total Protein Albumin TSH Free T3 pg/mL Urine Color JUWAN Urine Appearance SLIGHTLY-CLOUDY Urine pH 5.0 Ur Specific Gardiner 1.019 Urine Protein NEGATIVE Urine Glucose (UA) NEGATIVE Urine Ketones NEGATIVE Urine Blood NEGATIVE Urine Nitrite NEGATIVE Ur Leukocyte Esterase SMALL H Urine WBC (Auto) 4 Urine RBC (Auto) 1 02/23/20 02/23/20 02/23/20 01:45 04:17 04:17 WBC 8.9 RBC 3.01 L Hgb 9.6 L D Hct 28.0 L MCV 93 MCH 31.9 MCHC 34.3 RDW 14.8 H Plt Count 367 Seg Neutrophils % 69.4 VBG pH VBG pCO2 VBG HCO3 VBG Base Excess Sodium 133.5 L Potassium 4.4 Chloride 101 Carbon Dioxide 28 Anion Gap 5 BUN 27 H Creatinine 1.05 Est GFR ( Amer) > 60 Glucose 164 H Lactic Acid 1.0 Calcium 8.3 L Magnesium Total Bilirubin AST Alkaline Phosphatase Total Protein Albumin TSH Free T3 pg/mL Urine Color Urine Appearance Urine pH Ur Specific Gardiner Urine Protein Urine Glucose (UA) Urine Ketones Urine Blood Urine Nitrite Ur Leukocyte Esterase Urine WBC (Auto) Urine RBC (Auto) 02/22/20 02/22/20 02/23/20 19:48 19:48 01:45 Creatine Kinase 26 L 21 L Troponin I < 0.012 Impressions: Chest X-Ray 02/22/20 20:37 IMPRESSION: No evidence of acute cardiopulmonary disease. Assessment and Plan - Diagnosis (1) Abscess Is this a current diagnosis for this admission?: Yes Plan: Blood cultures pending Wound culture pending Admitted to [facility]. Empiric Vanc and Zosyn Surgical consultation (2) Unstageable pressure ulcer of left heel Is this a current diagnosis for this admission?: Yes Plan: Float heels Turn q2 h Surgery is consulted. (3) Decubitus ulcer, stage III Qualifiers: Pressure injury location: hip Laterality: right Qualified Code(s): L89.213 - Pressure ulcer of right hip, stage 3 Is this a current diagnosis for this admission?: Yes Plan: Large right greater trochanteric decubitus ulcer Turn and reposition Surgery is consulted. (4) Diabetes Qualifiers: Diabetes mellitus type: type 2 Is this a current diagnosis for this admission?: Yes Plan: A1C 7.0% Please holding oral medications while admitted. Patient is placed on a consistent carb diet. Accu-Cheks before meals and at bedtime with Humalog for sliding scale coverage. Hypoglycemia protocol in place. Registered dietitian consulted. (5) Hyperkalemia Is this a current diagnosis for this admission?: Yes Plan: Resolved Without peak T waves Continue to monitor on telemetry Follow up chemistry (6) Hypomagnesemia Is this a current diagnosis for this admission?: Yes Plan: IV repletion and reevaluation of chemistry with magnesium level. (7) Mobility impaired Is this a current diagnosis for this admission?: Yes Plan: Physical therapy/occupational therapy evaluation, Have requested records from [facility] Follow-up discharge planning consult for placement. - Time Time Spent with patient: 35 or more minutes Medications reviewed and adjusted accordingly: Yes
[2020-02-23] MEDS ORDERED: FENTANYL CITRATE INJ/PF 100 MCG/2 ML AMPUL ONE (10:48)
[2020-02-23] MEDS ORDERED: MIDAZOLAM 2 MG/2 ML INJ ONE (10:48)
[2020-02-23] MEDS ORDERED: ONDANSETRON HCL INJ/PF 4 MG/2 ML SDV ONE (10:48)
[2020-02-23] MEDS ORDERED: PROPOFOL INJ 200 MG/20 ML VIAL IV ONE (10:48)
[2020-02-23] MEDS ORDERED: BUPIVACAINE HCL 0.25% /EPINEPHRINE INJ/PF 30 ML SDV ONE (12:09)
[2020-02-23] MEDS ORDERED: PROMETHAZINE HCL INJ 25 MG/1 ML VIAL IV PRN (12:12)
[2020-02-23] MEDS ORDERED: DIPHENHYDRAMINE HCL 50 MG/ML VIAL IV PRN (12:12)
[2020-02-23] MEDS ORDERED: MEPERIDINE HCL/PF INJ 25 MG/1 ML DISP.SYRIN IV PRN (12:12)
[2020-02-23] MEDS ORDERED: FENTANYL CITRATE INJ/PF 100 MCG/2 ML AMPUL IV PRN ×2 (12:12)
--- NOTE | 2020-02-23 13:42 | Operative Report ---
Nonrecallable Operative Report DATE OF SURGERY: 02/23/20 PREOPERATIVE DIAGNOSIS: Decubitus ulceration right hip and right back POSTOPERATIVE DIAGNOSIS: Cubitus ulceration right hip and right back OPERATION: Debridement decubitus ulcer right hip right back SURGEON: PREETHI FORD ANESTHESIA: LMAC TISSUE REMOVED OR ALTERED: Skin right hip right back COMPLICATIONS: None ESTIMATED BLOOD LOSS: 100cc INTRAOPERATIVE FINDINGS: Deep ulcer abscess right hip to the right hip joint PROCEDURE: Patient was brought to the operating awake alert stable condition placed in the upper table in a left lateral decubitus position for exposure of the right hip over the right trochanter and the right scapula. After appropriate timeout and site verification the procedure commenced. The over the right greater trochanter was prepped and draped as was the area over the right upper back over the scapula. Patient had a large ulceration over the right greater trochanter about 15 cm long by about 8 cm wide elliptical incision was made over this with the Bovie cautery we carried our dissection down through subcutaneous tissue with Bovie cautery. Initially in the deep subcutaneous tissue there was purulent material however this extended down into the periosteum of the right hip joint. We had to completely excise the 50 cm long by 8 cm wide area of skin all the way down to the right hip joint did not appear to be penetrating the joint capsule itself but there was a large amount of pus and necrotic tissue all the way to the right hip joint this tissue was excised with Bovie cautery back to clean bleeding edges. Large wound was then packed with Betadine soaked Kerlix gauze. Attention was then turned to the right scapula. Over the right scapula at a the inferior horn of the scapula the abscess was approximately 4 cm wide by 2 cm long it was elliptically incised with Bovie cautery. We carried our dissection down through the subcutaneous tissue into the muscle of the trapezius muscle spaces appear to be healthy and there was no further evidence of pus after the excision. This wound was also packed with a Betadine Dyne soaked gauze packing. Once these debridements were completed a sterile dressing was applied which completed the procedure. Estimated blood loss was approximately 100 cc sponge needle counts were correct x2 the patient was then transferred recovery in stable condition no complications
[2020-02-23] MEDS ORDERED: PHENYLEPHRINE HCL INJ/PF 10 MG/1 ML SDV ONE (14:12)
[2020-02-24] MEDS: PIPERACILLIN SODIUM/TAZOBACTAM 3.375 GM in NORMAL SALINE 100 ML IV SCH ×4 (03:16→20:24)
[2020-02-24] MEDS: HEPARIN SOD (PORCINE) 5,000 UNIT/ML 1 ML VIAL SUBCUT SCH ×3 (05:47→21:51)
[2020-02-24 05:53] LABS: HEMATOCRIT 27.3 % (37.9-51.0); HEMOGLOBIN 9.3 g/dL (13.5-17.0); MEAN CORPUSCULAR HEMOGLOBIN 31.8 pg (27.0-33.4); MEAN CORPUSCULAR HGB CONC 34.1 g/dL (32.0-36.0); MEAN CORPUSCULAR VOLUME 93 fl (80-97); PLATELET COUNT 375 10^3/uL (150-450); RED BLOOD COUNT 2.92 10^6/uL (4.35-5.55); RED CELL DISTRIBUTION WIDTH 14.4 % (11.5-14.0); WHITE BLOOD COUNT 8.3 10^3/uL (4.0-10.5)
[2020-02-24 06:13] LABS: BLOOD UREA NITROGEN 18 mg/dL (7-20); CALCIUM 8.4 mg/dL (8.4-10.2); CHLORIDE 101 mmol/L (98-107); GLUCOSE 178 mg/dL (75-110); POTASSIUM 4.9 mmol/L (3.6-5.0)
[2020-02-24 06:19] LABS: CARBON DIOXIDE 29 mmol/L (22-30)
[2020-02-24 06:28] LABS: ANION GAP 4 (5-19)
[2020-02-24] MEDS: INSULIN LISPRO 100 UNIT/ML 3 ML VIAL SUBCUT SCH ×3 (08:36→17:17)
[2020-02-24] MEDS: VANCOMYCIN HCL 1,500 MG in DEXTROSE 5%-WATER 250 ML IV SCH ×2 (09:26→21:51)
[2020-02-24] MEDS: DOCUSATE SODIUM 100 MG CAPSULE PO SCH ×2 (09:28→17:15)
--- NOTE | 2020-02-24 12:36 | PDOC PROGRESS REPORT ---
Subjective Progress Note for:: 02/24/20 Reason For Visit: TROCHANTER Physical Exam Vital Signs: Temp Pulse Resp BP Pulse Ox 98.9 F 98 18 113/68 92 02/24/20 08:26 02/24/20 08:26 02/24/20 08:26 02/24/20 08:26 02/24/20 08:26 Intake & Output 02/23/20 02/24/20 02/25/20 06:59 06:59 06:59 Intake Total 3066 2990 350 Output Total 400 Balance 3066 2590 350 Weight 115.9 kg 118.5 kg Results Laboratory Results: 02/24/20 05:07 02/24/20 05:07 02/24/20 02/24/20 05:07 05:07 WBC 8.3 RBC 2.92 L Hgb 9.3 L Hct 27.3 L MCV 93 MCH 31.8 MCHC 34.1 RDW 14.4 H Plt Count 375 Sodium 133.5 L Potassium 4.9 Chloride 101 Carbon Dioxide 29 Anion Gap 4 L BUN 18 Creatinine 0.96 Est GFR ( Amer) > 60 Glucose 178 H Calcium 8.4 Magnesium 1.6 02/22/20 02/22/20 02/23/20 19:48 19:48 01:45 Creatine Kinase 26 L 21 L Troponin I < 0.012 Impressions: Chest X-Ray 02/22/20 20:37 IMPRESSION: No evidence of acute cardiopulmonary disease. Assessment & Plan - Diagnosis (1) Right ischial pressure sore, stage 4 Is this a current diagnosis for this admission?: Yes - Plan Summary Plan Summary: This is a 74-year-old male status post debridement of an initial decubitus ulcer, stage IV. The wound looks good today. I will consult social work for home wound VAC arrangement. Until the home wound VAC can be secured, perform damp to dry dressing changes twice daily. Surgery will continue to follow with you.
--- NOTE | 2020-02-24 17:08 | PDOC PROGRESS REPORT ---
Subjective Progress Note for:: 02/24/20 Subjective:: FABRICE GRANADOS is a 74 year old male with a past medical history of diabetes, hypertension, dyslipidemia, obesity, generalized debility and recurrent falls who was admitted for profound debility with stage III, 4, and unstageable pressure ulcers and an abscess to his right back requiring surgical debridement. Patient was seen on afternoon rounds. He was found resting in bed, comfortably on room air. He was sleeping soundly and did not wake when I said his name. He does appear to be comfortable and is not noted to be in any discomfort. By notes, he did work with physical therapy earlier today. Poor appetite. No concerns per nursing. Reason For Visit: TROCHANTER Physical Exam Vital Signs: Temp Pulse Resp BP Pulse Ox 98.5 F 95 18 121/68 91 L 02/24/20 12:17 02/24/20 14:00 02/24/20 12:17 02/24/20 12:17 02/24/20 12:17 Intake & Output 02/23/20 02/24/20 02/25/20 06:59 06:59 06:59 Intake Total 3066 2990 570 Output Total 400 Balance 3066 2590 570 Weight 115.9 kg 118.5 kg General appearance: PRESENT: no acute distress, well-developed, well-nourished - overweight Head exam: PRESENT: atraumatic, normocephalic Ear exam: PRESENT: normal external ear exam Mouth exam: PRESENT: moist, tongue midline Respiratory exam: PRESENT: clear to auscultation elizabeth, symmetrical, unlabored. ABSENT: rales, rhonchi, wheezes Cardiovascular exam: PRESENT: RRR, +S1, +S2. ABSENT: diastolic murmur, rubs, systolic murmur Pulses: PRESENT: normal dorsalis pedis pul Vascular exam: PRESENT: normal capillary refill GI/Abdominal exam: PRESENT: normal bowel sounds, soft. ABSENT: distended, guarding, mass, organolmegaly, rebound, tenderness Rectal exam: PRESENT: deferred Extremities exam: ABSENT: calf tenderness, clubbing, pedal edema Neurological exam: PRESENT: CN II-XII grossly intact, other - sleeping soundly. ABSENT: motor sensory deficit Psychiatric exam: PRESENT: appropriate affect, normal mood. ABSENT: homicidal ideation, suicidal ideation Skin exam: PRESENT: dry, warm. ABSENT: cyanosis, intact - surgical wounds not visualized; dressings in place, rash Results Laboratory Results: 02/24/20 05:07 02/24/20 05:07 02/24/20 02/24/20 05:07 05:07 WBC 8.3 RBC 2.92 L Hgb 9.3 L Hct 27.3 L MCV 93 MCH 31.8 MCHC 34.1 RDW 14.4 H Plt Count 375 Sodium 133.5 L Potassium 4.9 Chloride 101 Carbon Dioxide 29 Anion Gap 4 L BUN 18 Creatinine 0.96 Est GFR ( Amer) > 60 Glucose 178 H Calcium 8.4 Magnesium 1.6 02/22/20 02/22/20 02/23/20 19:48 19:48 01:45 Creatine Kinase 26 L 21 L Troponin I < 0.012 Impressions: Chest X-Ray 02/22/20 20:37 IMPRESSION: No evidence of acute cardiopulmonary disease. Assessment and Plan - Diagnosis (1) Abscess Is this a current diagnosis for this admission?: Yes Plan: Abscess to upper back; POD #1 surgical I&D by Dr. Gonzalez Blood cultures NGTD Wound culture shows to strains Gram negative rods. Admitted to IMCU. Empiric Vanc and Zosyn Surgical consultation; Wound care per surgery (2) Unstageable pressure ulcer of left heel Is this a current diagnosis for this admission?: Yes Plan: Float heels Turn q2 h Surgery is consulted. (3) Decubitus ulcer, stage III Qualifiers: Pressure injury location: hip Laterality: right Qualified Code(s): L89.213 - Pressure ulcer of right hip, stage 3 Is this a current diagnosis for this admission?: Yes Plan: Large right greater trochanteric decubitus ulcer; s/p surgical debridement by Dr. Gonzalez Turn and reposition Surgery is consulted; wound care per surgery. microbiology lab analyst consulted for wound healing Discharge planning consulted; recommend LTAC for complicated wound care (4) Diabetes Qualifiers: Diabetes mellitus type: type 2 Is this a current diagnosis for this admission?: Yes Plan: A1C 7.0% Please holding oral medications while admitted. Patient is placed on a consistent carb diet. Accu-Cheks before meals and at bedtime with Humalog for sliding scale coverage. Hypoglycemia protocol in place. Registered dietitian consulted. (5) Hyperkalemia Is this a current diagnosis for this admission?: Yes Plan: Resolved Without peak T waves Continue to monitor on telemetry Follow up chemistry (6) Hypomagnesemia Is this a current diagnosis for this admission?: Yes Plan: IV repletion and reevaluation of chemistry with magnesium level. (7) Mobility impaired Is this a current diagnosis for this admission?: Yes Plan: Physical therapy/occupational therapy evaluation, Have requested records from [facility] Discharge planning consult for placement. - Time Time Spent with patient: 25-34 minutes Medications reviewed and adjusted accordingly: Yes Anticipated discharge: Other - LTAC
[2020-02-24] MEDS ORDERED: [UNRECOGNIZED DRUG - OTHER] PO SCH (18:00)
[2020-02-24] MEDS ORDERED: ATORVASTATIN CALCIUM 80 MG TABLET PO SCH (22:00)
[2020-02-24 22:19] LABS: VANCOMYCIN,TROUGH 16.2 ug/mL (5.0-20.0)
[2020-02-25] MEDS: INSULIN LISPRO 100 UNIT/ML 3 ML VIAL SUBCUT SCH ×2 (00:51→06:20)
[2020-02-25] MEDS: PIPERACILLIN SODIUM/TAZOBACTAM 3.375 GM in NORMAL SALINE 100 ML IV SCH ×2 (03:25→08:49)
[2020-02-25 05:54] LABS: HEMATOCRIT 28.2 % (37.9-51.0); HEMOGLOBIN 9.5 g/dL (13.5-17.0); MEAN CORPUSCULAR HEMOGLOBIN 31.4 pg (27.0-33.4); MEAN CORPUSCULAR HGB CONC 33.8 g/dL (32.0-36.0); MEAN CORPUSCULAR VOLUME 93 fl (80-97); PLATELET COUNT 438 10^3/uL (150-450); RED BLOOD COUNT 3.04 10^6/uL (4.35-5.55); RED CELL DISTRIBUTION WIDTH 14.7 % (11.5-14.0); WHITE BLOOD COUNT 8.7 10^3/uL (4.0-10.5)
[2020-02-25 06:04] LABS: ANION GAP 5 (5-19); BLOOD UREA NITROGEN 19 mg/dL (7-20); CALCIUM 8.7 mg/dL (8.4-10.2); CARBON DIOXIDE 29 mmol/L (22-30); CHLORIDE 99 mmol/L (98-107); GLUCOSE 130 mg/dL (75-110); POTASSIUM 4.8 mmol/L (3.6-5.0)
[2020-02-25] MEDS: HEPARIN SOD (PORCINE) 5,000 UNIT/ML 1 ML VIAL SUBCUT SCH ×2 (06:15→13:59)
[2020-02-25] MEDS ORDERED: PAROXETINE HCL 20 MG TABLET PO SCH (10:00)
[2020-02-25] MEDS ORDERED: MULTIVITAMIN TABLET PO SCH (10:00)
[2020-02-25] MEDS ORDERED: LEVOFLOXACIN 500 MG TABLET PO SCH (10:00)
[2020-02-25] MEDS ORDERED: ASPIRIN 81 MG TABLET, ENT COATED PO SCH (10:00)
[2020-02-25] MEDS ORDERED: CHOLECALCIFEROL (D3) 1,000 UNIT (25 MCG) TABLET PO SCH (10:00)
[2020-02-25] MEDS ORDERED: (PENDING PHARMACY ID) (Lisinopril [Zestril] 40 MG) PO SCH (10:00)
[2020-02-25] MEDS ORDERED: LISINOPRIL 10 MG TABLET PO SCH (10:00)
--- NOTE | 2020-02-25 11:15 | PDOC PROGRESS REPORT ---
Subjective Progress Note for:: 02/25/20 Reason For Visit: TROCHANTER Physical Exam Vital Signs: Temp Pulse Resp BP Pulse Ox 98.4 F 87 17 118/67 93 02/25/20 08:17 02/25/20 08:17 02/25/20 08:17 02/25/20 08:17 02/25/20 08:17 Intake & Output 02/24/20 02/25/20 02/26/20 06:59 06:59 06:59 Intake Total 2990 1717 250 Output Total 400 Balance 2590 1717 250 Weight 118.5 kg 120.2 kg Results Laboratory Results: 02/25/20 04:57 02/25/20 04:57 02/24/20 02/25/20 02/25/20 21:30 04:57 04:57 WBC 8.7 RBC 3.04 L Hgb 9.5 L Hct 28.2 L MCV 93 MCH 31.4 MCHC 33.8 RDW 14.7 H Plt Count 438 Sodium 132.7 L Potassium 4.8 Chloride 99 Carbon Dioxide 29 Anion Gap 5 BUN 19 Creatinine 0.96 1.00 Est GFR ( Amer) > 60 > 60 Glucose 130 H Calcium 8.7 02/23/20 12:11 Hip - Right Gram Stain - Final 02/22/20 20:48 Back - Upper Gram Stain - Final 02/22/20 20:48 Back - Upper Wound Culture - Final Pseudomonas Aeruginosa Acinetobacter Baumannii/Haem 02/22/20 02/22/20 02/23/20 19:48 19:48 01:45 Creatine Kinase 26 L 21 L Troponin I < 0.012 Impressions: Chest X-Ray 02/22/20 20:37 IMPRESSION: No evidence of acute cardiopulmonary disease. Assessment & Plan - Diagnosis (1) Right ischial pressure sore, stage 4 Is this a current diagnosis for this admission?: Yes - Plan Summary Plan Summary: This is a 74-year-old male status post debridement of an ischial decubitus ulcer, stage IV. The wound is stable. Awaiting home wound VAC. Until the home wound VAC can be secured, perform damp to dry dressing changes twice daily.
[2020-02-25] MEDS: DOCUSATE SODIUM 100 MG CAPSULE PO SCH ×2 (11:16→17:02)
--- NOTE | 2020-02-25 11:42 | PDOC PROGRESS REPORT ---
Subjective Progress Note for:: 02/25/20 Subjective:: FABRICE GRANADOS is a 74 year old male with a past medical history of diabetes, hypertension, dyslipidemia, obesity, generalized debility and recurrent falls who was admitted for profound debility with stage III, 4, and unstageable pressure ulcers and an abscess to his right back requiring surgical debridement. 02/25/2020. No acute events overnight. Comfortably resting in bed no apparent distress. Endorses good appetite. Denies any fever, chills, nausea, vomiting, diarrhea, constipation or any urinary symptoms. Pending wound VAC placement and LTAC transfer. Reason For Visit: TROCHANTER Physical Exam Vital Signs: Temp Pulse Resp BP Pulse Ox 98.4 F 87 17 118/67 93 02/25/20 08:17 02/25/20 08:17 02/25/20 08:17 02/25/20 08:17 02/25/20 08:17 Intake & Output 02/24/20 02/25/20 02/26/20 06:59 06:59 06:59 Intake Total 2990 1717 350 Output Total 400 Balance 2590 1717 350 Weight 118.5 kg 120.2 kg General appearance: PRESENT: obese Head exam: PRESENT: atraumatic, normocephalic Respiratory exam: PRESENT: clear to auscultation elizabeth. ABSENT: rales, rhonchi, wheezes Cardiovascular exam: PRESENT: RRR. ABSENT: diastolic murmur, rubs, systolic murmur GI/Abdominal exam: PRESENT: normal bowel sounds, soft. ABSENT: distended, guarding, mass, organolmegaly, rebound, tenderness Extremities exam: PRESENT: full ROM, other - Left heel medial aspect pressure sore unstageable noninfected.. ABSENT: calf tenderness, clubbing, pedal edema Neurological exam: PRESENT: alert, awake, oriented to person, oriented to place, oriented to time, oriented to situation, CN II-XII grossly intact. ABSENT: motor sensory deficit Results Laboratory Results: 02/25/20 04:57 02/25/20 04:57 02/24/20 02/25/20 02/25/20 21:30 04:57 04:57 WBC 8.7 RBC 3.04 L Hgb 9.5 L Hct 28.2 L MCV 93 MCH 31.4 MCHC 33.8 RDW 14.7 H Plt Count 438 Sodium 132.7 L Potassium 4.8 Chloride 99 Carbon Dioxide 29 Anion Gap 5 BUN 19 Creatinine 0.96 1.00 Est GFR ( Amer) > 60 > 60 Glucose 130 H Calcium 8.7 02/23/20 12:11 Hip - Right Gram Stain - Final 02/22/20 20:48 Back - Upper Gram Stain - Final 02/22/20 20:48 Back - Upper Wound Culture - Final Pseudomonas Aeruginosa Acinetobacter Baumannii/Haem 02/22/20 02/22/20 02/23/20 19:48 19:48 01:45 Creatine Kinase 26 L 21 L Troponin I < 0.012 Impressions: Chest X-Ray 02/22/20 20:37 IMPRESSION: No evidence of acute cardiopulmonary disease. Assessment and Plan - Diagnosis (1) Abscess Is this a current diagnosis for this admission?: Yes Plan: Abscess to upper back; POD #2 surgical I&D by Dr. Gonzalez Blood cultures negative. Wound culture growing E. coli, Pseudomonas, Acinetobacter all sensitive to quinolones and beta-lactams Day 4 antibiotics. Received 3 days of vancomycin. Received 3 days of Zosyn. Day 1 p.o. levofloxacin. Continue to antibiotics. Continue wound care. Surgery following. Recommendations noted. (2) Decubitus ulcer, stage III Qualifiers: Pressure injury location: hip Laterality: right Qualified Code(s): L89.213 - Pressure ulcer of right hip, stage 3 Is this a current diagnosis for this admission?: Yes Plan: Large right greater trochanteric decubitus ulcer; s/p surgical debridement by Dr. Gonzalez Turn and reposition Surgery is consulted; wound care per surgery. supervisor patching consulted for wound healing Discharge planning consulted; recommend LTAC for complicated wound care (3) Diabetes Qualifiers: Diabetes mellitus type: type 2 Diabetes mellitus complication detail: with other skin ulcer Is this a current diagnosis for this admission?: Yes Plan: Well-controlled. A1C 7.0% Diabetic diet. Accu-Cheks. Sliding scale insulin. Hypoglycemia protocol. Resume oral antidiabetics. Outpatient PCP follow-up for medication adjustment. (4) Hyperkalemia Is this a current diagnosis for this admission?: Yes Plan: Resolved Without peak T waves Continue to monitor on telemetry Follow up chemistry (5) Hypomagnesemia Is this a current diagnosis for this admission?: Yes Plan: IV repletion and reevaluation of chemistry with magnesium level. (6) Mobility impaired Is this a current diagnosis for this admission?: Yes Plan: Physical therapy/occupational therapy evaluation, Have requested records from [facility] Pending placement. Discharge planning on board. (7) Unstageable pressure ulcer of left heel Is this a current diagnosis for this admission?: Yes Plan: No sign of infection. Float heels Turn q2 h Surgery is consulted. (8) Hypertension Is this a current diagnosis for this admission?: Yes Plan: Controlled. Continue SOURAV. Adjustments as needed. Outpatient PCP follow-up. (9) Hyperlipidemia Is this a current diagnosis for this admission?: Yes Plan: Continue high intensity statins. Low-fat and diabetic diet. Outpatient PCP follow-up. (10) Depression Is this a current diagnosis for this admission?: Yes Plan: Chronic. Denies any suicidal or homicidal ideation. Continue SSRIs. Patient PCP and psychiatry follow-up.
[2020-02-25] MEDS ORDERED: DEXTROSE 50%-WATER 25 GM/50 ML DISP.SYRIN IV PRN ×2 (11:43)
[2020-02-25] MEDS ORDERED: DEXTROSE 40% GEL 15 GM TUBE PO PRN ×2 (11:43)
[2020-02-25] MEDS ORDERED: GLUCAGON,HUMAN RECOMB 1 MG INJ IM PRN (11:43)
[2020-02-25] MEDS: INSULIN REG, HUMAN 100 UNIT/ML 3 ML VIAL (PYX) SUBCUT SCH ×2 (12:44→16:59)
--- NOTE | 2020-02-25 14:14 | PDOC TRANSFER SUMMARY ---
General Admission Date/PCP: 02/22/20 23:52 ZAKI DAVIS MD Resuscitation Status: Full Code - Transfer Diagnosis (1) Abscess Is this a current diagnosis for this admission?: Yes (2) Decubitus ulcer, stage III Is this a current diagnosis for this admission?: Yes (3) Diabetes Is this a current diagnosis for this admission?: Yes (4) Hyperkalemia Is this a current diagnosis for this admission?: Yes (5) Hypomagnesemia Is this a current diagnosis for this admission?: Yes (6) Mobility impaired Is this a current diagnosis for this admission?: Yes (7) Unstageable pressure ulcer of left heel Is this a current diagnosis for this admission?: Yes (8) Hypertension Is this a current diagnosis for this admission?: Yes (9) Hyperlipidemia Is this a current diagnosis for this admission?: Yes (10) Depression Is this a current diagnosis for this admission?: Yes - Transfer Medications Home Medications: Argin/Glut/Cahmb/Collag/Mv-Min [Levi Packet] 1 each PO BID 02/23/20 Aspirin [Ecotrin 81 mg EC Tablet] 81 mg PO DAILY 02/23/20 Atorvastatin Calcium [Lipitor 80 mg Tablet] 80 mg PO QHS 02/23/20 Cholecalciferol (Vitamin D3) [Vitamin D3 1000 Unit Tablet] 1,000 unit PO DAILY 02/23/20 Lisinopril [Zestril] 40 mg PO DAILY 02/23/20 Metformin HCl 500 mg PO BID 02/23/20 Multivitamin 1 each PO DAILY 02/23/20 Ondansetron HCl [Zofran] 4 mg PO Q6HP PRN 02/23/20 Paroxetine HCl [Paxil] 40 mg PO DAILY 02/23/20 Transfer Medications: Current Medications Acetaminophen (Tylenol 325 Mg Tablet) 650 mg PO Q4HP PRN PRN Reason: FOR PAIN OR TEMP Stop: 03/23/20 23:41 Al Hydrox/Mg Hydrox/Simethicone (Maalox Plus Susp 30 Udcup) 30 ml PO Q6HP PRN PRN Reason: HEARTBURN Stop: 03/23/20 23:41 Aspirin (Ecotrin 81 Mg Ec Tablet) 81 mg PO DAILY [facility] Stop: 03/26/20 09:59 Last Admin: 02/25/20 10:26 Dose: 81 mg Documented by: Atorvastatin Calcium (Lipitor 80 Mg Tablet) 80 mg PO QHS [facility] Stop: 03/25/20 21:59 Last Admin: 02/24/20 21:51 Dose: 80 mg Documented by: Cholecalciferol (Vitamin D3 1000 Unit Tablet) 1,000 unit PO DAILY [facility] Stop: 03/26/20 09:59 Last Admin: 02/25/20 10:26 Dose: 1,000 unit Documented by: Dextrose (Dextrose Inj 50% Syringe (25 Gm/50 Ml)) 12.5 gm IV PRN PRN; Protocol PRN Reason: FOR BG 50-69 IN ALERT PATIENT Stop: 03/26/20 11:42 Dextrose (Dextrose Inj 50% Syringe (25 Gm/50 Ml)) 25 gm IV PRN PRN; Protocol PRN Reason: PER PROTOCOL Stop: 03/26/20 11:42 Docusate Sodium (Colace 100 Mg Capsule) 100 mg PO BID [facility] Stop: 03/24/20 09:59 Last Admin: 02/25/20 11:16 Dose: Not Given Documented by: Glucagon (Glucagen Inj 1 Mg Vial) 1 mg IM PRN PRN; Protocol PRN Reason: Evaluate for BG < 70 Stop: 03/26/20 11:42 Glucose (Glutose 40% Gel 15 Gm Tube) 15 gm PO PRN PRN; Protocol PRN Reason: FOR BG 50-69 IN ALERT PATIENT Stop: 03/26/20 11:42 Glucose (Glutose 40% Gel 15 Gm Tube) 30 gm PO PRN PRN; Protocol PRN Reason: FOR BG < 50 IN ALERT PATIENT Stop: 03/26/20 11:42 Heparin Sodium (Porcine) (Heparin Inj 5,000 Units/Ml 1 Ml Vial) 5,000 unit SUBCUT Q8 [facility] Stop: 03/24/20 05:59 Last Admin: 02/25/20 13:59 Dose: 5,000 unit Documented by: Hydralazine HCl (Apresoline Inj/Pf 20 Mg/1 Ml Sdv) 10 mg IV Q6HP PRN PRN Reason: Sbp>160 Stop: 03/24/20 04:42 Cefepime HCl (Maxipime Rtu 1 Gm/D5w 50 Ml Premix Bag) 1 gm in 50 mls @ 100 mls/hr IV Q12 [facility] Stop: 03/03/20 21:59 Insulin Human Regular (Humulin R (Pyxis) Insulin 100 Unit/Ml 3ml) 0 - 12 unit SUBCUT ACHS [facility]; Protocol Stop: 03/26/20 12:59 Last Admin: 02/25/20 12:44 Dose: 8 unit Documented by: Lisinopril (Prinivil 10 Mg Tablet) 40 mg PO DAILY [facility] Stop: 03/26/20 09:59 Last Admin: 02/25/20 10:26 Dose: 40 mg Documented by: Magnesium Hydroxide (Milk Of Magnesia 30 Ml Udcup) 30 ml PO HSP PRN PRN Reason: FOR CONSTIPATION Stop: 03/23/20 23:41 Metformin HCl (Glucophage 500 Mg Tablet) 1,000 mg PO BIDACBS [facility] Stop: 03/26/20 15:59 Multivitamins (Tab-A-Dayne (Multiple Vitamin) Tablet) 1 tab PO DAILY [facility] Stop: 03/26/20 09:59 Last Admin: 02/25/20 10:26 Dose: 1 tab Documented by: Paroxetine HCl (Paxil 20 Mg Tablet) 40 mg PO DAILY [facility] Stop: 03/26/20 09:59 Last Admin: 02/25/20 10:29 Dose: 40 mg Documented by: Patient Own Medication (Argin/Glut/Cahmb/Collag/Mv-Min [Levi Packet]) 1 each PO .BID [facility] Stop: 03/25/20 17:59 - Allergies Allergies/Adverse Reactions: No Known Allergies Allergy (Verified 04/06/19 22:38) Hospital Course Hospital Course: FABRICE GRANADOS is a 74 year old male with a past medical history of diabetes, hypertension, dyslipidemia, obesity, generalized debility and recurrent falls who was admitted for profound debility with stage III, 4, and unstageable pressure ulcers and an abscess to his right back requiring surgical debridement. (1) Abscess Afebrile. WBC WNL. Vitals WNL. Abscess right trochanteric region and right mid upper back. POD #2 surgical I&D by Dr. Gonzalez Blood cultures negative. Wound culture growing E. coli, Pseudomonas, Acinetobacter sensitive to beta- lactams and carbapenems and gram-negative rods pending sensitivity. Day 4/14 IV antibiotics. Received 3 days of vancomycin. Received 3 days of Zosyn. Day 1/ IV cefepime. Continue to antibiotics. Continue wound care. Follow-up wound culture. Outpatient follow-up with Dr. Gonzalez at [facility]. (2) Decubitus ulcer, stage III Large right greater trochanteric decubitus ulcer; s/p surgical debridement by Dr. Gonzalez Continue wound care, frequent repositioning Plan as per #1. (3) Diabetes Well-controlled. A1C 7.0% Started on diabetic diet. Accu-Cheks. Sliding scale insulin. Hypoglycemia protocol. Resume oral antidiabetics. Outpatient PCP follow-up for medication adjustment. (4) Hyperkalemia Resolved Without peak T waves Continue to monitor on telemetry (5) Hypomagnesemia Replete. Monitore electrolytes and replace as needed. (6) Mobility impaired Physical therapy/occupational therapy evaluation (7) Unstageable pressure ulcer of left heel No sign of infection. Float heels Turn q2 h Continue wound care. (8) Hypertension Controlled. Continue SOURAV. Adjustments as needed. Outpatient PCP follow-up. (9) Hyperlipidemia Continue high intensity statins. Low-fat and diabetic diet. Outpatient PCP follow-up. (10) Depression Chronic. Denies any suicidal or homicidal ideation. Continue SSRIs. Patient PCP and psychiatry follow-up. Physical Exam Vital Signs: Temp Pulse Resp BP Pulse Ox 97.3 F 109 H 18 123/72 96 02/25/20 12:10 02/25/20 12:10 02/25/20 12:10 02/25/20 12:10 02/25/20 12:10 Intake & Output 02/24/20 02/25/20 02/26/20 06:59 06:59 06:59 Intake Total 2990 1717 350 Output Total 400 Balance 2590 1717 350 Weight 118.5 kg 120.2 kg General appearance: PRESENT: obese Head exam: PRESENT: atraumatic, normocephalic Respiratory exam: PRESENT: clear to auscultation elizabeth. ABSENT: rales, rhonchi, wheezes Cardiovascular exam: PRESENT: RRR. ABSENT: diastolic murmur, rubs, systolic murmur GI/Abdominal exam: PRESENT: normal bowel sounds, soft. ABSENT: distended, guarding, mass, organolmegaly, rebound, tenderness Extremities exam: PRESENT: full ROM, other - Right hip and right mid back wound looks clean, no sign of infection. Left heel unstageable wound, no sign of infection.. ABSENT: calf tenderness, clubbing, pedal edema Neurological exam: PRESENT: alert, awake, oriented to person, oriented to place, oriented to time, oriented to situation, CN II-XII grossly intact. ABSENT: motor sensory deficit Results Laboratory Results: 02/25/20 04:57 02/25/20 04:57 02/24/20 02/25/20 02/25/20 21:30 04:57 04:57 WBC 8.7 RBC 3.04 L Hgb 9.5 L Hct 28.2 L MCV 93 MCH 31.4 MCHC 33.8 RDW 14.7 H Plt Count 438 Sodium 132.7 L Potassium 4.8 Chloride 99 Carbon Dioxide 29 Anion Gap 5 BUN 19 Creatinine 0.96 1.00 Est GFR ( Amer) > 60 > 60 Glucose 130 H Calcium 8.7 02/23/20 12:11 Hip - Right Gram Stain - Final 02/22/20 20:48 Back - Upper Gram Stain - Final 02/22/20 20:48 Back - Upper Wound Culture - Final Pseudomonas Aeruginosa Acinetobacter Baumannii/Haem 02/22/20 02/22/20 02/23/20 19:48 19:48 01:45 Creatine Kinase 26 L 21 L Troponin I < 0.012 Impressions: Chest X-Ray 02/22/20 20:37 IMPRESSION: No evidence of acute cardiopulmonary disease.
[2020-02-25] MEDS ORDERED: INSULIN REG, HUMAN 100 UNIT/ML 3 ML VIAL (PYX) SUBCUT SCH (16:00)
[2020-02-25] MEDS ORDERED: METFORMIN HCL 500 MG TABLET PO SCH (16:00)
[2020-02-25 16:40] VITALS: BP 117/57
[2020-02-25] MEDS ORDERED: CEFEPIME 1 GM/D5W RTU 1 GM/50 ML RTUPB IV SCH (22:00)
== END 2020-02-25 20:08 | disposition other institution (70) | DRG 571 ==
LOC: ER 18:49 → EH 23:52 → 3N 02-23 01:15
PROVIDERS: ADMIT Internal Medicine; ATTEND Internal Medicine
PROC: 0JB70ZZ Excision of Back Subcutaneous Tissue and Fascia, Open Approach (ICD-10-PCS; 2020-02-23)
PROC: 0KBN0ZZ Excision of Right Hip Muscle, Open Approach (ICD-10-PCS; principal; 2020-02-23 11:45)
DX: L89.214 Pressure ulcer of right hip, stage 4 (principal); L02.212 Cutaneous abscess of back [any part, except buttock and flank]; L89.624 Pressure ulcer of left heel, stage 4; L89.113 Pressure ulcer of right upper back, stage 3; B96.20 Unspecified Escherichia coli [E. coli] as the cause of diseases classified elsewhere; B96.5 Pseudomonas (aeruginosa) (mallei) (pseudomallei) as the cause of diseases classified elsewhere; E87.5 Hyperkalemia; E83.42 Hypomagnesemia; I10 Essential (primary) hypertension; E78.5 Hyperlipidemia, unspecified; I45.10 Unspecified right bundle-branch block; E11.65 Type 2 diabetes mellitus with hyperglycemia; R29.6 Repeated falls; F32.9 Major depressive disorder, single episode, unspecified; E66.9 Obesity, unspecified; S30.1XXA Contusion of abdominal wall, initial encounter; W19.XXXA Unspecified fall, initial encounter; Z79.82 Long term (current) use of aspirin; Z79.899 Other long term (current) drug therapy; Z79.84 Long term (current) use of oral hypoglycemic drugs; Z74.01 Bed confinement status; Z83.3 Family history of diabetes mellitus; Z82.49 Family history of ischemic heart disease and other diseases of the circulatory system
CPT/HCPCS: 00300; 36415; 51701; 71045; 80048; 80053; 80202; 81001; 82550; 82565; 82803; 82962; 83036; 83605; 83735; 84443; 84481; 84484; 85025; 85027; 85610; 87040; 87070; 87075; 87077; 87186; 87205; 87635; 93005; 93010; 96361; 96365; 96366; 96368; 99285; C9803; J0692; J1644; J1815; J2250; J2370; J2405; J2543; J2704; J3010; J3370; J3475; J3490; J7030; J7050; J7060